=== PATIENT | female | born 1995 | race Caucasian/White ===

== ENCOUNTER 2025-04-04 06:27 | Inpatient (IN) ==
[2025-04-04 07:52] LABS: Hematocrit (blood only) 35.3 % (37.0-47.0); Hemoglobin 11.9 g/dl (12.0-16.0); Mean Corpuscular Hemoglobin 29.7 pg (25.0-34.0); Mean Corpuscular Hgb Conc 33.7 g/dL (32.0-36.0); Mean Platelet Volume 12.5 fL (9.4-12.4); Platelet Count 159 K/uL (130-400); RDW Coefficient of Variation 12.8 % (11.5-14.5); RDW Standard Deviation 40.9 fL (36.4-46.3); Red Blood Count 4.01 M/uL (4.20-5.40); White Blood Count 10.57 K/ul (4.8-10.8)
[2025-04-04 08:14] LABS: Albumin Level 2.9 gm/dl (3.4-5.0); BUN Creatinine Ratio 15.2 (10-20); Bilirubin Direct 0.1 mg/dl (0-0.2); Bilirubin,Total 0.5 mg/dl (0.2-1.0); Calcium 8.6 mg/dl (8.6-10.3); Creatinine Clr Calc Pharmacy 93.7 ml/min; Globulin 2.9 gm/dl (2.5-4.0); Potassium 4.2 mmol/L (3.5-5.1); Total Protein 5.8 gm/dl (6.0-8.3)
[2025-04-04 08:41] LABS: Creatinine Urine Random 134.8 mg/dl; Total Protein Urine Random > 1000.0 mg/dl (0-11.9)
--- NOTE | 2025-04-04 08:56 | History & Physical Report ---
Date of Service April 04, 2025 Assessment & Plan (1) Encounter for supervision of normal in multigravida: (2) History of pre-eclampsia: (3) Placental abnormality: Plan is a 29 y/o female currently at 39 1/7 WGA with an ERNESTINE 04/10/25 as determined by LMP who is here for secondary to contractions and home and possible ROM on her way to the hospital. Her was complicated by hx of pre-eclampsia in prior and placental capps in current . Pt is taking 81 mg aspirin daily. Pt presented with elevated BP's and 4+ protein in her urine. Noted possible meconium on exam glove following cervical check. Currently pt is denying pre-eclamptic symptoms. - Start IV mag sulfate 4mg, then 40mg IV at 50mls/hr - neuro checks q15m during mag loading dose, then q30m while on maintenance - Place ahumada catheter - Seizure precautions - Start Pitocin, start at 2 and increase by 2 - Consult anesthesia for epidural per pt request - Consider amniotomy if needed to augment and progress labor Admission and Anticipated Discharge Date Admission Date: April 04, 2025 History of Present Illness Chief Complaint: Contractions/PROM? Primary Care Provider: NO PCP is a 29 y/o female currently at 39 1/7 WGA with an ERNESTINE 04/10/25 as determined by LMP who is here for secondary to contractions and home and possible ROM on her way to the hospital. Her was complicated by hx of pre-eclampsia in prior and placental capps in current . Pt is taking 81 mg aspirin daily. regular contractions; regular movement; straw colored fluid loss this morning; no bloody show Had regular appointments with OB. Labs: Blood Type O Positive 09/23/24 Antibody Screen NEGATIVE 09/23/24 Hgb 12.3 g/dl (12.0-16.0) 01/16/25 Hct 36.4 % (37.0-47.0) L 01/16/25 MCV 86.7 fL (80.0-100.0) 09/23/24 Plt Count 253 K/uL (130-400) 09/23/24 Rubella IgG Antibody Immune (Immune) 09/23/24 Treponema pallidum Ab Negative (Negative) 01/16/25 Hep Bs Antigen Negative (Negative) 09/23/24 Hepatitis C Antibody Negative (Negative) 09/23/24 HIV 1&2 Ab/P24 Ag 4thGn Negative (Negative) 09/23/24 Glucose 1 Hr 50 gm 132 mg/dl (70-130) H 01/16/25 Maternal Serum AFP 53.5 ng/mL 10/24/24 OB Optional Labs: Chlamydia trachomatis RNA Not Detected (NotDetected) 09/23/24 Neisseria gonorrhoeae RNA Not Detected (NotDetected) 09/23/24 Alpha Fetoprotein Triple Screen SEE NOTE 10/24/24 Labs Reviewed: neg afp - sln low risk cfdna - sln H.9 (today) Hct: 35.3 (today) WBC: 10.57 (today) Plt: 159 (today) GBS: Neg Allergies Allergy/AdvReac Type Severity Reaction Status Date / Time No Known Allergies Allergy Verified 03/27/25 15:35 Home Medications Medication Instructions Recorded Confirmed Type PNV no.[id number]-fja-waze 1 mg PO DAILY 09/16/24 04/04/25 History [ Gummies] metoclopramide HCl 10 mg 10 mg PO Q6H #20 tabs 09/23/24 04/04/25 Rx disintegrating tablet aspirin [Baby Aspirin] 81 mg PO DAILY 10/24/24 04/04/25 History Patient History Medical History Varicella vaccination Preeclampsia Surgical History No history of previous surgery Family History Aunt Hypertension Denies family history of Ovarian cancer Breast cancer Colorectal cancer Social History (Updated 09/16/24 @ 14:12 by Charmaine Ellsworth) Smoking Status: Never smoker Do You Dip or Chew Tobacco: No; Hx Alcohol Use: No Hx Substance Use: No Preferred Language: [place] Communication Ability: Effective Aging Box Hand Required: No Beliefs That Will Affect Care: None marital status: Legally marital status details: antonieta Odell "Trenton" Charlee (31) [phone] Current Living Situation: Significant Other Current Living Situation Comment: lives with fob, 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 Denies breast pain. Denies dysuria. Denies headache or changes in vision. Physical Exam Physical Exam: General: Alert, oriented. No acute distress. Cardiac: Regular rate and rhythm, no murmurs/rubs/gallops. Respiratory: Clear to auscultation bilaterally a/p, no wheezes/rales/rhonchi. No increased work of breathing. Symmetrical chest rise. No respiratory distress. Abdomen: Gravid Pelvic: Dilation 5 cm; Effacement 90% ; Station -[address] Rivero Lower Extremities: No lower extremity edema or swelling. No deep calf pain. Santy's negative bilaterally Results & Data Vital Signs (Past 12 Hours) Vital Signs Temp Pulse Resp BP 04/04/25 07:13 106 H 04/04/25 07:13 159/108 H 04/04/25 06:57 37.3 C 20 04/04/25 06:56 89 04/04/25 06:56 171/107 H 04/04/25 06:46 88 186/103 H 04/04/25 06:43 37.4 C 96 H 18 168/100 H Code Status & VTE Plan VTE Prophylaxis Plan VTE Prophylaxis will be ordered: No Monitoring External Monitor External FHT and external uterine monitors used; Category 1 tracing; moderate FHT variability. Supervising Physician Co-Signing Physician Notes Resident Physician Supervision Note: I interviewed and examined the patient. Discussed with [Name of resident] and agree with findings and plan as documented in the note. Any exceptions or clarifications are listed here: Will AROM first to augment labor and pitocin augmentation is necessary. Initial PIH labs are normal. Documented By: Tiana Mckeon MD, FACOG Resident Activity Tracking Resident Involvement: Resident Care Provided Care Provided: Adult Hospital Medicine
[2025-04-04 09:32] LABS: Creatinine Urine Random 103.9 mg/dl; Protein Creatinine Ratio Urine 9.2 (0-0.2); Total Protein Urine Random 954.4 mg/dl (0-11.9)
--- NOTE | 2025-04-04 11:03 | Labor Progress Brief Note ---
Date of Service April 04, 2025 Subjective noting contractions, tolerating. Assessment & Plan (1) Preeclampsia: Plan Pressures have recently become elevated and have treated with IV labatelol. Symptoms have not worsened. prt/emergency doctor 9.2. Severe disease. arom for augmentation for mec. Peds aware of the situation. Will continue to monitor closely. Admission and Anticipated Discharge Date Admission Date: April 04, 2025 Physical Exam Physical Exam: cx-- arom--thick, particulate mec toco--q2-4 efm--130s with mod to min variability, small accels, scalp stim noted, mag effect Results & Data Vital Signs (Past 12 Hours) Vital Signs Temp Pulse Resp BP Pulse Ox 04/04/25 10:54 97 04/04/25 10:54 86 04/04/25 10:50 89 04/04/25 10:50 153/99 H 04/04/25 10:49 98 04/04/25 10:49 90 04/04/25 10:44 98 04/04/25 10:44 87 04/04/25 10:39 98 04/04/25 10:39 88 04/04/25 10:36 102 H 04/04/25 10:36 164/101 H 04/04/25 10:35 102 H 162/103 H 04/04/25 10:34 98 04/04/25 10:34 92 H 04/04/25 10:31 162/103 H 04/04/25 10:31 98 H 04/04/25 10:31 162/103 H 04/04/25 10:30 20 04/04/25 10:30 18 04/04/25 10:29 98 04/04/25 10:29 90 04/04/25 10:25 93 H 04/04/25 10:25 162/103 H 04/04/25 10:24 98 04/04/25 10:24 91 H 04/04/25 10:19 98 04/04/25 10:19 96 H 04/04/25 10:14 97 04/04/25 10:14 92 H 04/04/25 10:13 89 04/04/25 10:13 164/103 H 04/04/25 10:11 91 H 184/109 H 04/04/25 10:09 97 04/04/25 10:09 91 H 04/04/25 10:04 98 04/04/25 10:04 100 H 04/04/25 09:59 98 04/04/25 09:59 92 H 04/04/25 09:59 184/109 H 04/04/25 09:54 98 04/04/25 09:54 98 H 04/04/25 09:49 98 04/04/25 09:49 98 H 04/04/25 09:44 98 04/04/25 09:44 98 H 04/04/25 09:43 102 H 04/04/25 09:43 158/103 H 04/04/25 09:39 98 04/04/25 09:39 86 04/04/25 09:34 96 04/04/25 09:34 90 04/04/25 09:29 98 04/04/25 09:29 90 04/04/25 09:28 105 H 04/04/25 09:28 147/97 H 04/04/25 09:24 97 04/04/25 09:24 92 H 04/04/25 09:19 98 04/04/25 09:19 93 H 04/04/25 09:15 16 04/04/25 09:15 16 04/04/25 09:14 98 04/04/25 09:14 101 H 04/04/25 09:13 100 H 04/04/25 09:13 152/101 H 04/04/25 09:09 98 04/04/25 09:09 106 H 04/04/25 09:04 98 04/04/25 09:04 96 H 04/04/25 09:00 16 04/04/25 09:00 18 04/04/25 09:00 18 04/04/25 08:59 98 04/04/25 08:59 95 H 04/04/25 08:58 93 H 04/04/25 08:58 143/101 H 04/04/25 08:54 98 04/04/25 08:54 84 04/04/25 07:13 106 H 04/04/25 07:13 159/108 H 04/04/25 06:57 37.3 C 20 04/04/25 06:56 89 04/04/25 06:56 171/107 H 04/04/25 06:46 88 186/103 H 04/04/25 06:43 37.4 C 96 H 18 168/100 H Coding Level of Care Code None Diagnoses Preeclampsia O14.90
--- NOTE | 2025-04-04 14:21 | Labor Progress Brief Note ---
Date of Service April 04, 2025 Subjective Patient now with epidural. Blood pressure dropped with epidural requiring ephedrine. fetus tolerated but mom was symptomatic Assessment & Plan (1) Preeclampsia: Plan Continue mag. Offered pitocin as we seem to be stalled here. She agrees. Fetus overall category one, category 2 wiht min variability secondary to mag effect. Start pit. Patient tolerating lower blood pressures as is fetus. Admission and Anticipated Discharge Date Admission Date: April 04, 2025 Physical Exam Physical Exam: cx--6 per nursing, unchanged toco--q2-4min efm--130s with min to mod variability, mag effect, small accels Results & Data Vital Signs (Past 12 Hours) Vital Signs Temp Pulse Resp BP Pulse Ox 04/04/25 14:17 74 04/04/25 14:17 105/60 04/04/25 14:14 98 04/04/25 14:14 70 04/04/25 14:09 98 04/04/25 14:09 71 04/04/25 14:06 74 04/04/25 14:06 104/59 L 04/04/25 14:04 98 04/04/25 14:04 77 04/04/25 14:00 18 04/04/25 14:00 18 04/04/25 14:00 70 04/04/25 14:00 98/55 L 04/04/25 13:59 98 04/04/25 13:59 73 04/04/25 13:54 97 04/04/25 13:54 78 04/04/25 13:54 80 04/04/25 13:54 106/55 L 04/04/25 13:51 94 04/04/25 13:51 83 04/04/25 13:49 98 04/04/25 13:49 87 04/04/25 13:49 127/65 04/04/25 13:47 83 04/04/25 13:47 112/62 04/04/25 13:45 80 04/04/25 13:45 105/54 L 04/04/25 13:44 97 04/04/25 13:44 89 04/04/25 13:44 76 04/04/25 13:44 95/50 L 04/04/25 13:42 83 04/04/25 13:42 102/59 L 04/04/25 13:39 97 04/04/25 13:39 79 04/04/25 13:39 105/59 L 04/04/25 13:37 79 04/04/25 13:37 103/57 L 04/04/25 13:36 81 04/04/25 13:36 102/56 L 04/04/25 13:34 97 04/04/25 13:34 80 04/04/25 13:34 78 04/04/25 13:34 114/60 04/04/25 13:31 81 04/04/25 13:31 118/64 04/04/25 13:30 18 04/04/25 13:30 18 04/04/25 13:29 97 04/04/25 13:29 83 04/04/25 13:29 83 04/04/25 13:29 114/62 04/04/25 13:28 18 04/04/25 13:28 18 04/04/25 13:27 83 04/04/25 13:27 122/67 04/04/25 13:25 83 04/04/25 13:25 135/73 04/04/25 13:24 98 04/04/25 13:24 84 04/04/25 13:23 18 04/04/25 13:23 18 04/04/25 13:23 81 04/04/25 13:23 128/76 04/04/25 13:21 75 04/04/25 13:21 121/74 04/04/25 13:19 98 04/04/25 13:19 79 04/04/25 13:19 87 04/04/25 13:19 139/83 04/04/25 13:18 18 04/04/25 13:18 18 04/04/25 13:17 37.0 C 04/04/25 13:16 72 04/04/25 13:16 137/81 04/04/25 13:15 93 04/04/25 13:15 76 04/04/25 13:15 72 04/04/25 13:15 117/68 04/04/25 13:14 97 04/04/25 13:14 80 04/04/25 13:13 80 04/04/25 13:13 108/68 04/04/25 13:12 90 04/04/25 13:12 118/83 04/04/25 13:09 97 0620/25 13:09 84 04/04/25 13:04 97 04/04/25 13:04 84 04/04/25 13:00 20 04/04/25 13:00 20 04/04/25 12:59 97 04/04/25 12:59 89 04/04/25 12:59 87 04/04/25 12:59 163/99 H 04/04/25 12:54 97 04/04/25 12:54 85 04/04/25 12:49 99 04/04/25 12:49 90 04/04/25 12:49 85 04/04/25 12:49 161/99 H 04/04/25 12:45 142/86 H 04/04/25 12:44 99 04/04/25 12:44 84 04/04/25 12:39 97 04/04/25 12:39 88 04/04/25 12:39 166/97 H 04/04/25 12:34 98 04/04/25 12:34 88 04/04/25 12:30 18 04/04/25 12:30 20 04/04/25 12:30 20 04/04/25 12:29 98 04/04/25 12:29 87 04/04/25 12:29 83 04/04/25 12:29 142/86 H 04/04/25 12:28 157/101 H 04/04/25 12:24 97 04/04/25 12:24 90 04/04/25 12:22 83 179/102 H 04/04/25 12:20 83 04/04/25 12:20 179/102 H 04/04/25 12:19 98 04/04/25 12:19 84 04/04/25 12:14 98 04/04/25 12:14 89 04/04/25 12:09 97 04/04/25 12:09 88 04/04/25 12:09 89 04/04/25 12:09 156/99 H 04/04/25 12:04 97 04/04/25 12:04 86 04/04/25 12:03 85 04/04/25 12:03 154/97 H 04/04/25 12:00 18 04/04/25 12:00 18 04/04/25 11:59 98 04/04/25 11:59 86 04/04/25 11:59 167/102 H 04/04/25 11:54 97 04/04/25 11:54 86 04/04/25 11:49 98 04/04/25 11:49 89 04/04/25 11:49 86 04/04/25 11:49 150/98 H 04/04/25 11:44 97 04/04/25 11:44 86 04/04/25 11:39 98 04/04/25 11:39 89 04/04/25 11:39 86 04/04/25 11:39 157/101 H 04/04/25 11:34 98 04/04/25 11:34 87 04/04/25 11:30 20 04/04/25 11:30 20 04/04/25 11:29 97 04/04/25 11:29 87 04/04/25 11:29 158/104 H 04/04/25 11:24 97 04/04/25 11:24 97 H 04/04/25 11:22 91 H 161/107 H 04/04/25 11:19 99 04/04/25 11:19 95 H 04/04/25 11:19 95 H 04/04/25 11:19 161/107 H 04/04/25 11:14 98 04/04/25 11:14 100 H 04/04/25 11:09 98 04/04/25 11:09 95 H 04/04/25 11:09 95 H 04/04/25 11:09 158/100 H 04/04/25 11:04 97 04/04/25 11:04 99 H 04/04/25 11:00 89 153/99 H 04/04/25 11:00 20 04/04/25 11:00 20 04/04/25 10:59 97 04/04/25 10:59 100 H 04/04/25 10:59 169/106 H 04/04/25 10:58 36.9 C 04/04/25 10:54 97 04/04/25 10:54 86 04/04/25 10:50 89 04/04/25 10:50 153/99 H 04/04/25 10:49 98 04/04/25 10:49 90 04/04/25 10:44 98 04/04/25 10:44 87 04/04/25 10:39 98 06 10:39 88 06 10:36 102 H 04/04/25 10:36 164/101 H 04/04/25 10:35 102 H 162/103 H 04/04/25 10:34 98 04/04/25 10:34 92 H 04/04/25 10:31 162/103 H 04/04/25 10:31 98 H 04/04/25 10:31 162/103 H 04/04/25 10:30 20 04/04/25 10:30 18 04/04/25 10:29 98 06 10:29 90 04/04/25 10:25 93 H 04/04/25 10:25 162/103 H 04/04/25 10:24 98 04/04/25 10:24 91 H 04/04/25 10:19 98 04/04/25 10:19 96 H 04/04/25 10:14 97 04/04/25 10:14 92 H 04/04/25 10:13 89 04/04/25 10:13 164/103 H 04/04/25 10:11 91 H 184/109 H 04/04/25 10:09 97 04/04/25 10:09 91 H 04/04/25 10:04 98 04/04/25 10:04 100 H 04/04/25 09:59 98 04/04/25 09:59 92 H 04/04/25 09:59 184/109 H 04/04/25 09:54 98 04/04/25 09:54 98 H 04/04/25 09:49 98 04/04/25 09:49 98 H 04/04/25 09:44 98 04/04/25 09:44 98 H 04/04/25 09:43 102 H 04/04/25 09:43 158/103 H 04/04/25 09:39 98 04/04/25 09:39 86 04/04/25 09:34 96 04/04/25 09:34 90 04/04/25 09:29 98 04/04/25 09:29 90 04/04/25 09:28 105 H 04/04/25 09:28 147/97 H 04/04/25 09:24 97 04/04/25 09:24 92 H 04/04/25 09:19 98 04/04/25 09:19 93 H 04/04/25 09:15 16 04/04/25 09:15 16 04/04/25 09:14 98 04/04/25 09:14 101 H 04/04/25 09:13 100 H 04/04/25 09:13 152/101 H 04/04/25 09:09 98 04/04/25 09:09 106 H 04/04/25 09:04 98 04/04/25 09:04 96 H 04/04/25 09:00 16 04/04/25 09:00 18 04/04/25 09:00 18 04/04/25 08:59 98 04/04/25 08:59 95 H 04/04/25 08:58 93 H 04/04/25 08:58 143/101 H 04/04/25 08:54 98 04/04/25 08:54 84 04/04/25 07:13 106 H 04/04/25 07:13 159/108 H 04/04/25 06:57 37.3 C 20 04/04/25 06:56 89 04/04/25 06:56 171/107 H 04/04/25 06:46 88 186/103 H 04/04/25 06:43 37.4 C 96 H 18 168/100 H Coding Level of Care Code None Diagnoses Preeclampsia O14.90
--- NOTE | 2025-04-04 17:06 | Labor Progress Brief Note ---
Date of Service April 04, 2025 Subjective patient comfortable. notes shivering Assessment & Plan (1) Preeclampsia: Plan continue current management. fetus category two from mag effect but with reassuring scalp stim and occasional small variable. Admission and Anticipated Discharge Date Admission Date: April 04, 2025 Physical Exam Physical Exam: cx--/-2 toco--q2-4, pit at 4 efm--120 with min variability, mag effect, rare small variable, +scalp stim, no decels Results & Data Vital Signs (Past 12 Hours) Vital Signs Temp Pulse Resp BP Pulse Ox 04/04/25 16:59 99 04/04/25 16:59 75 04/04/25 16:56 80 04/04/25 16:56 112/59 L 04/04/25 16:54 99 04/04/25 16:54 89 04/04/25 16:49 100 04/04/25 16:49 102 H 04/04/25 16:44 98 04/04/25 16:44 82 04/04/25 16:39 98 04/04/25 16:39 81 04/04/25 16:36 78 04/04/25 16:36 120/66 04/04/25 16:35 92 H 04/04/25 16:35 116/60 04/04/25 16:34 99 04/04/25 16:34 79 04/04/25 16:30 20 04/04/25 16:30 20 04/04/25 16:29 98 04/04/25 16:29 83 04/04/25 16:24 99 04/04/25 16:24 79 04/04/25 16:19 99 04/04/25 16:19 84 04/04/25 16:17 81 04/04/25 16:17 114/56 L 04/04/25 16:14 98 04/04/25 16:14 74 04/04/25 16:09 100 04/04/25 16:09 84 04/04/25 16:09 76 04/04/25 16:09 104/64 04/04/25 16:04 99 04/04/25 16:04 76 04/04/25 16:00 18 04/04/25 16:00 18 04/04/25 15:59 99 04/04/25 15:59 80 04/04/25 15:57 72 06/20/25 15:57 108/55 L 04/04/25 15:54 99 04/04/25 15:54 74 04/04/25 15:49 99 04/04/25 15:49 77 04/04/25 15:47 70 04/04/25 15:47 99/52 L 04/04/25 15:44 98 04/04/25 15:44 78 04/04/25 15:39 98 04/04/25 15:39 77 04/04/25 15:37 79 04/04/25 15:37 110/57 L 04/04/25 15:34 100 04/04/25 15:34 77 04/04/25 15:30 18 04/04/25 15:30 18 04/04/25 15:30 18 04/04/25 15:29 100 04/04/25 15:29 82 04/04/25 15:27 76 04/04/25 15:27 112/61 04/04/25 15:24 99 04/04/25 15:24 74 04/04/25 15:19 99 04/04/25 15:19 78 04/04/25 15:17 81 04/04/25 15:17 112/62 04/04/25 15:14 98 04/04/25 15:14 82 04/04/25 15:09 99 04/04/25 15:09 70 04/04/25 15:06 78 04/04/25 15:06 108/56 L 04/04/25 15:04 99 04/04/25 15:04 78 04/04/25 15:00 18 04/04/25 15:00 36.6 C 18 04/04/25 14:59 99 04/04/25 14:59 75 04/04/25 14:56 71 04/04/25 14:56 107/59 L 04/04/25 14:54 99 04/04/25 14:54 79 04/04/25 14:49 98 04/04/25 14:49 77 04/04/25 14:46 75 04/04/25 14:46 95/53 L 04/04/25 14:44 98 04/04/25 14:44 72 04/04/25 14:42 75 04/04/25 14:42 106/56 L 04/04/25 14:39 99 04/04/25 14:39 74 04/04/25 14:36 80 04/04/25 14:36 108/54 L 04/04/25 14:34 97 04/04/25 14:34 86 04/04/25 14:31 94 04/04/25 14:31 82 04/04/25 14:30 18 04/04/25 14:30 18 04/04/25 14:30 18 04/04/25 14:29 97 04/04/25 14:29 71 04/04/25 14:28 73 04/04/25 14:28 90/52 L 04/04/25 14:24 98 04/04/25 14:24 81 04/04/25 14:19 98 04/04/25 14:19 74 04/04/25 14:17 74 04/04/25 14:17 105/60 04/04/25 14:14 98 04/04/25 14:14 70 04/04/25 14:09 98 04/04/25 14:09 71 04/04/25 14:06 74 04/04/25 14:06 104/59 L 04/04/25 14:04 98 04/04/25 14:04 77 04/04/25 14:00 18 04/04/25 14:00 18 04/04/25 14:00 70 04/04/25 14:00 98/55 L 04/04/25 13:59 98 04/04/25 13:59 73 04/04/25 13:54 97 04/04/25 13:54 78 04/04/25 13:54 80 04/04/25 13:54 106/55 L 04/04/25 13:51 94 04/04/25 13:51 83 04/04/25 13:49 98 04/04/25 13:49 87 04/04/25 13:49 127/65 04/04/25 13:47 83 04/04/25 13:47 112/62 04/04/25 13:45 80 04/04/25 13:45 105/54 L 04/04/25 13:44 97 04/04/25 13:44 89 04/04/25 13:44 76 04/04/25 13:44 95/50 L 04/04/25 13:42 83 04/04/25 13:42 102/59 L 04/04/25 13:39 97 04/04/25 13:39 79 04/04/25 13:39 105/59 L 04/04/25 13:37 79 04/04/25 13:37 103/57 L 04/04/25 13:36 81 04/04/25 13:36 102/56 L 04/04/25 13:34 97 04/04/25 13:34 80 04/04/25 13:34 78 04/04/25 13:34 114/60 04/04/25 13:31 81 04/04/25 13:31 118/64 04/04/25 13:30 18 04/04/25 13:30 18 04/04/25 13:30 18 04/04/25 13:29 97 04/04/25 13:29 83 04/04/25 13:29 83 04/04/25 13:29 114/62 04/04/25 13:28 18 04/04/25 13:28 18 04/04/25 13:27 83 04/04/25 13:27 122/67 04/04/25 13:25 83 04/04/25 13:25 135/73 04/04/25 13:24 98 04/04/25 13:24 84 04/04/25 13:23 18 04/04/25 13:23 18 04/04/25 13:23 81 04/04/25 13:23 128/76 04/04/25 13:21 75 04/04/25 13:21 121/74 04/04/25 13:19 98 04/04/25 13:19 79 04/04/25 13:19 87 04/04/25 13:19 139/83 04/04/25 13:18 18 04/04/25 13:18 18 04/04/25 13:17 37.0 C 04/04/25 13:16 72 04/04/25 13:16 137/81 04/04/25 13:15 93 04/04/25 13:15 76 04/04/25 13:15 72 04/04/25 13:15 117/68 04/04/25 13:14 97 04/04/25 13:14 80 04/04/25 13:13 80 04/04/25 13:13 108/68 04/04/25 13:12 90 04/04/25 13:12 118/83 04/04/25 13:09 97 04/04/25 13:09 84 04/04/25 13:04 97 04/04/25 13:04 84 04/04/25 13:00 20 04/04/25 13:00 20 04/04/25 12:59 97 04/04/25 12:59 89 04/04/25 12:59 87 04/04/25 12:59 163/99 H 04/04/25 12:54 97 04/04/25 12:54 85 04/04/25 12:49 99 04/04/25 12:49 90 04/04/25 12:49 85 04/04/25 12:49 161/99 H 04/04/25 12:45 142/86 H 04/04/25 12:44 99 04/04/25 12:44 84 04/04/25 12:39 97 04/04/25 12:39 88 04/04/25 12:39 166/97 H 04/04/25 12:34 98 04/04/25 12:34 88 04/04/25 12:30 18 04/04/25 12:30 20 04/04/25 12:30 20 04/04/25 12:29 98 04/04/25 12:29 87 04/04/25 12:29 83 04/04/25 12:29 142/86 H 04/04/25 12:28 157/101 H 04/04/25 12:24 97 04/04/25 12:24 90 04/04/25 12:22 83 179/102 H 04/04/25 12:20 83 04/04/25 12:20 179/102 H 04/04/25 12:19 98 04/04/25 12:19 84 04/04/25 12:14 98 04/04/25 12:14 89 04/04/25 12:09 97 04/04/25 12:09 88 04/04/25 12:09 89 04/04/25 12:09 156/99 H 04/04/25 12:04 97 04/04/25 12:04 86 04/04/25 12:03 85 04/04/25 12:03 154/97 H 04/04/25 12:00 18 04/04/25 12:00 18 04/04/25 11:59 98 04/04/25 11:59 86 04/04/25 11:59 167/102 H 04/04/25 11:54 97 04/04/25 11:54 86 04/04/25 11:49 98 04/04/25 11:49 89 04/04/25 11:49 86 04/04/25 11:49 150/98 H 04/04/25 11:44 97 04/04/25 11:44 86 04/04/25 11:39 98 04/04/25 11:39 89 04/04/25 11:39 86 04/04/25 11:39 157/101 H 04/04/25 11:34 98 04/04/25 11:34 87 04/04/25 11:30 18 04/04/25 11:30 20 04/04/25 11:30 20 04/04/25 11:29 97 04/04/25 11:29 87 04/04/25 11:29 158/104 H 04/04/25 11:24 97 04/04/25 11:24 97 H 04/04/25 11:22 91 H 161/107 H 04/04/25 11:19 99 04/04/25 11:19 95 H 04/04/25 11:19 95 H 04/04/25 11:19 161/107 H 04/04/25 11:14 98 04/04/25 11:14 100 H 04/04/25 11:09 98 04/04/25 11:09 95 H 04/04/25 11:09 95 H 04/04/25 11:09 158/100 H 04/04/25 11:04 97 04/04/25 11:04 99 H 04/04/25 11:00 89 153/99 H 04/04/25 11:00 20 04/04/25 11:00 20 04/04/25 10:59 97 04/04/25 10:59 100 H 04/04/25 10:59 169/106 H 04/04/25 10:58 36.9 C 04/04/25 10:54 97 04/04/25 10:54 86 04/04/25 10:50 89 04/04/25 10:50 153/99 H 20 10:49 98 062025 10:49 90 20 10:44 98 06 10:44 87 04/04/25 10:39 98 04/04/25 10:39 88 04/04/25 10:36 102 H 04/04/25 10:36 164/101 H 04/04/25 10:35 102 H 162/103 H 04/04/25 10:34 98 04/04/25 10:34 92 H 04/04/25 10:31 162/103 H 04/04/25 10:31 98 H 04/04/25 10:31 162/103 H 04/04/25 10:30 20 04/04/25 10:30 18 04/04/25 10:29 98 04/04/25 10:29 90 04/04/25 10:25 93 H 04/04/25 10:25 162/103 H 04/04/25 10:24 98 04/04/25 10:24 91 H 04/04/25 10:19 98 04/04/25 10:19 96 H 04/04/25 10:14 97 04/04/25 10:14 92 H 04/04/25 10:13 89 04/04/25 10:13 164/103 H 04/04/25 10:11 91 H 184/109 H 04/04/25 10:09 97 04/04/25 10:09 91 H 04/04/25 10:04 98 04/04/25 10:04 100 H 04/04/25 09:59 98 04/04/25 09:59 92 H 04/04/25 09:59 184/109 H 04/04/25 09:54 98 04/04/25 09:54 98 H 04/04/25 09:49 98 04/04/25 09:49 98 H 04/04/25 09:44 98 04/04/25 09:44 98 H 04/04/25 09:43 102 H 04/04/25 09:43 158/103 H 04/04/25 09:39 98 0620 09:39 86 04/04/25 09:34 96 04/04/25 09:34 90 04/04/25 09:29 98 04/04/25 09:29 90 04/04/25 09:28 105 H 04/04/25 09:28 147/97 H 04/04/25 09:24 97 04/04/25 09:24 92 H 04/04/25 09:19 98 04/04/25 09:19 93 H 04/04/25 09:15 16 04/04/25 09:15 16 04/04/25 09:14 98 04/04/25 09:14 101 H 04/04/25 09:13 100 H 04/04/25 09:13 152/101 H 04/04/25 09:09 98 04/04/25 09:09 106 H 04/04/25 09:04 98 04/04/25 09:04 96 H 04/04/25 09:00 16 04/04/25 09:00 18 04/04/25 09:00 18 04/04/25 08:59 98 04/04/25 08:59 95 H 04/04/25 08:58 93 H 04/04/25 08:58 143/101 H 04/04/25 08:54 98 04/04/25 08:54 84 04/04/25 07:13 106 H 04/04/25 07:13 159/108 H 04/04/25 06:57 37.3 C 20 04/04/25 06:56 89 04/04/25 06:56 171/107 H 04/04/25 06:46 88 186/103 H 04/04/25 06:43 37.4 C 96 H 18 168/100 H Coding Level of Care Code None Diagnoses Preeclampsia O14.90
--- NOTE | 2025-04-04 20:52 | Labor Progress Brief Note ---
Date of Service April 04, 2025 Subjective comfortable Assessment & Plan (1) Preeclampsia: Plan continue current management. increase pitocin. positioning changes. Starting to get a little worried about the slow progress and the edematous cervix. Admission and Anticipated Discharge Date Admission Date: April 04, 2025 Physical Exam Physical Exam: cx--8-9/90/0, edematous anterior lip toco--q2-4, pit at 8 efm--130s wtih min to mod varaiblity, small accels, +scalp stim, mag effect Results & Data Vital Signs (Past 12 Hours) Vital Signs Temp Pulse Resp BP Pulse Ox O2 Del Method 04/04/25 20:47 93 H 04/04/25 20:47 144/85 H 04/04/25 20:44 97 04/04/25 20:44 103 H 04/04/25 20:39 98 04/04/25 20:39 92 H 04/04/25 20:37 87 04/04/25 20:37 129/80 04/04/25 20:35 96 H 04/04/25 20:35 140/76 04/04/25 20:34 98 04/04/25 20:34 100 H 04/04/25 20:29 99 04/04/25 20:29 99 H 04/04/25 20:24 98 04/04/25 20:24 104 H 04/04/25 20:19 99 04/04/25 20:19 86 04/04/25 20:17 96 H 04/04/25 20:17 129/81 04/04/25 20:14 99 04/04/25 20:14 93 H 04/04/25 20:09 100 04/04/25 20:09 88 04/04/25 20:06 87 04/04/25 20:06 125/74 04/04/25 20:04 99 04/04/25 20:04 91 H 04/04/25 20:00 16 04/04/25 19:59 100 04/04/25 19:59 88 04/04/25 19:56 97 H 04/04/25 19:56 118/73 04/04/25 19:54 100 04/04/25 19:54 89 04/04/25 19:49 100 04/04/25 19:49 91 H 04/04/25 19:47 90 04/04/25 19:47 117/69 04/04/25 19:44 100 04/04/25 19:44 100 H 04/04/25 19:39 99 04/04/25 19:39 103 H 04/04/25 19:38 100 H 04/04/25 19:38 140/85 04/04/25 19:34 99 04/04/25 19:34 106 H 04/04/25 19:29 99 04/04/25 19:29 96 H 04/04/25 19:27 100 H 04/04/25 19:27 134/72 04/04/25 19:24 99 04/04/25 19:24 104 H 04/04/25 19:19 98 04/04/25 19:19 86 04/04/25 19:17 87 04/04/25 19:17 115/71 04/04/25 19:14 99 04/04/25 19:14 86 04/04/25 19:09 99 04/04/25 19:09 88 04/04/25 19:08 100 H 04/04/25 19:08 119/75 04/04/25 19:04 97 04/04/25 19:04 97 H 04/04/25 19:03 16 04/04/25 19:03 37.1 C 16 04/04/25 19:00 Room Air 04/04/25 19:00 16 04/04/25 19:00 18 04/04/25 19:00 18 04/04/25 18:59 98 04/04/25 18:59 90 04/04/25 18:57 93 H 04/04/25 18:57 132/79 04/04/25 18:54 98 04/04/25 18:54 102 H 04/04/25 18:49 98 04/04/25 18:49 97 H 04/04/25 18:46 97 H 04/04/25 18:46 125/79 04/04/25 18:44 98 04/04/25 18:44 107 H 04/04/25 18:39 98 04/04/25 18:39 89 04/04/25 18:37 91 H 04/04/25 18:37 134/77 04/04/25 18:34 98 04/04/25 18:34 94 H 04/04/25 18:30 18 04/04/25 18:30 18 04/04/25 18:30 18 04/04/25 18:29 98 04/04/25 18:29 89 04/04/25 18:26 93 H 04/04/25 18:26 120/80 04/04/25 18:24 98 04/04/25 18:24 88 04/04/25 18:19 98 04/04/25 18:19 103 H 04/04/25 18:17 104 H 04/04/25 18:17 136/93 04/04/25 18:14 98 04/04/25 18:14 91 H 04/04/25 18:09 99 04/04/25 18:09 105 H 04/04/25 18:06 90 04/04/25 18:06 135/76 04/04/25 18:04 98 04/04/25 18:04 89 04/04/25 18:00 18 04/04/25 18:00 18 04/04/25 17:59 98 04/04/25 17:59 95 H 04/04/25 17:56 101 H 04/04/25 17:56 131/74 04/04/25 17:54 99 04/04/25 17:54 92 H 04/04/25 17:49 99 04/04/25 17:49 91 H 04/04/25 17:47 81 04/04/25 17:47 136/71 04/04/25 17:44 98 04/04/25 17:44 81 04/04/25 17:39 100 04/04/25 17:39 97 H 04/04/25 17:36 95 H 04/04/25 17:36 140/65 04/04/25 17:34 99 04/04/25 17:34 84 04/04/25 17:30 16 04/04/25 17:30 18 04/04/25 17:30 18 04/04/25 17:29 99 04/04/25 17:29 90 04/04/25 17:26 86 04/04/25 17:26 122/68 04/04/25 17:24 98 04/04/25 17:24 78 04/04/25 17:19 100 04/04/25 17:19 93 H 04/04/25 17:16 78 04/04/25 17:16 125/71 04/04/25 17:14 98 04/04/25 17:14 76 04/04/25 17:09 98 04/04/25 17:09 83 04/04/25 17:08 78 04/04/25 17:08 119/64 04/04/25 17:04 99 04/04/25 17:04 80 04/04/25 17:00 18 04/04/25 17:00 18 04/04/25 16:59 99 04/04/25 16:59 75 04/04/25 16:56 80 04/04/25 16:56 112/59 L 04/04/25 16:54 99 04/04/25 16:54 89 04/04/25 16:49 100 04/04/25 16:49 102 H 04/04/25 16:44 98 04/04/25 16:44 82 04/04/25 16:39 98 04/04/25 16:39 81 04/04/25 16:36 78 04/04/25 16:36 120/66 04/04/25 16:35 92 H 04/04/25 16:35 116/60 04/04/25 16:34 99 04/04/25 16:34 79 04/04/25 16:30 18 04/04/25 16:30 20 04/04/25 16:30 20 04/04/25 16:29 98 04/04/25 16:29 83 04/04/25 16:24 99 04/04/25 16:24 79 04/04/25 16:19 99 04/04/25 16:19 84 04/04/25 16:17 81 04/04/25 16:17 114/56 L 04/04/25 16:14 98 04/04/25 16:14 74 04/04/25 16:09 100 04/04/25 16:09 84 04/04/25 16:09 76 04/04/25 16:09 104/64 04/04/25 16:04 99 04/04/25 16:04 76 04/04/25 16:00 18 04/04/25 16:00 18 04/04/25 15:59 99 04/04/25 15:59 80 04/04/25 15:57 72 04/04/25 15:57 108/55 L 04/04/25 15:54 99 04/04/25 15:54 74 04/04/25 15:49 99 04/04/25 15:49 77 04/04/25 15:47 70 04/04/25 15:47 99/52 L 04/04/25 15:44 98 04/04/25 15:44 78 04/04/25 15:39 98 04/04/25 15:39 77 04/04/25 15:37 79 04/04/25 15:37 110/57 L 04/04/25 15:34 100 04/04/25 15:34 77 04/04/25 15:30 18 04/04/25 15:30 18 04/04/25 15:30 18 04/04/25 15:29 100 04/04/25 15:29 82 04/04/25 15:27 76 04/04/25 15:27 112/61 04/04/25 15:24 99 04/04/25 15:24 74 04/04/25 15:19 99 04/04/25 15:19 78 04/04/25 15:17 81 04/04/25 15:17 112/62 04/04/25 15:14 98 04/04/25 15:14 82 04/04/25 15:09 99 04/04/25 15:09 70 04/04/25 15:06 78 04/04/25 15:06 108/56 L 04/04/25 15:04 99 04/04/25 15:04 78 04/04/25 15:00 18 04/04/25 15:00 36.6 C 18 04/04/25 14:59 99 04/04/25 14:59 75 04/04/25 14:56 71 04/04/25 14:56 107/59 L 04/04/25 14:54 99 04/04/25 14:54 79 04/04/25 14:49 98 04/04/25 14:49 77 04/04/25 14:46 75 04/04/25 14:46 95/53 L 04/04/25 14:44 98 04/04/25 14:44 72 04/04/25 14:42 75 04/04/25 14:42 106/56 L 04/04/25 14:39 99 06/20/25 14:39 74 04/04/25 14:36 80 04/04/25 14:36 108/54 L 04/04/25 14:34 97 04/04/25 14:34 86 04/04/25 14:31 94 04/04/25 14:31 82 04/04/25 14:30 18 04/04/25 14:30 18 04/04/25 14:30 18 04/04/25 14:29 97 04/04/25 14:29 71 04/04/25 14:28 73 04/04/25 14:28 90/52 L 04/04/25 14:24 98 04/04/25 14:24 81 04/04/25 14:19 98 04/04/25 14:19 74 04/04/25 14:17 74 04/04/25 14:17 105/60 04/04/25 14:14 98 04/04/25 14:14 70 04/04/25 14:09 98 04/04/25 14:09 71 04/04/25 14:06 74 04/04/25 14:06 104/59 L 04/04/25 14:04 98 04/04/25 14:04 77 04/04/25 14:00 18 04/04/25 14:00 18 04/04/25 14:00 70 04/04/25 14:00 98/55 L 04/04/25 13:59 98 04/04/25 13:59 73 04/04/25 13:54 97 04/04/25 13:54 78 04/04/25 13:54 80 04/04/25 13:54 106/55 L 04/04/25 13:51 94 04/04/25 13:51 83 04/04/25 13:49 98 04/04/25 13:49 87 04/04/25 13:49 127/65 04/04/25 13:47 83 04/04/25 13:47 112/62 04/04/25 13:45 80 04/04/25 13:45 105/54 L 04/04/25 13:44 97 04/04/25 13:44 89 04/04/25 13:44 76 04/04/25 13:44 95/50 L 04/04/25 13:42 83 04/04/25 13:42 102/59 L 04/04/25 13:39 97 04/04/25 13:39 79 04/04/25 13:39 105/59 L 04/04/25 13:37 79 04/04/25 13:37 103/57 L 04/04/25 13:36 81 04/04/25 13:36 102/56 L 04/04/25 13:34 97 04/04/25 13:34 80 04/04/25 13:34 78 04/04/25 13:34 114/60 04/04/25 13:31 81 04/04/25 13:31 118/64 04/04/25 13:30 18 04/04/25 13:30 18 04/04/25 13:30 18 04/04/25 13:29 97 04/04/25 13:29 83 04/04/25 13:29 83 04/04/25 13:29 114/62 04/04/25 13:28 18 04/04/25 13:28 18 04/04/25 13:27 83 04/04/25 13:27 122/67 04/04/25 13:25 83 04/04/25 13:25 135/73 04/04/25 13:24 98 04/04/25 13:24 84 04/04/25 13:23 18 04/04/25 13:23 18 04/04/25 13:23 81 04/04/25 13:23 128/76 04/04/25 13:21 75 04/04/25 13:21 121/74 04/04/25 13:19 98 04/04/25 13:19 79 04/04/25 13:19 87 04/04/25 13:19 139/83 04/04/25 13:18 18 04/04/25 13:18 18 04/04/25 13:17 37.0 C 04/04/25 13:16 72 04/04/25 13:16 137/81 04/04/25 13:15 93 04/04/25 13:15 76 04/04/25 13:15 72 04/04/25 13:15 117/68 04/04/25 13:14 97 04/04/25 13:14 80 04/04/25 13:13 80 04/04/25 13:13 108/68 0620/25 13:12 90 04/04/25 13:12 118/83 04/04/25 13:09 97 04/04/25 13:09 84 04/04/25 13:04 97 04/04/25 13:04 84 04/04/25 13:00 20 04/04/25 13:00 20 04/04/25 12:59 97 04/04/25 12:59 89 04/04/25 12:59 87 04/04/25 12:59 163/99 H 04/04/25 12:54 97 04/04/25 12:54 85 04/04/25 12:49 99 04/04/25 12:49 90 04/04/25 12:49 85 04/04/25 12:49 161/99 H 04/04/25 12:45 142/86 H 04/04/25 12:44 99 04/04/25 12:44 84 04/04/25 12:39 97 04/04/25 12:39 88 04/04/25 12:39 166/97 H 04/04/25 12:34 98 04/04/25 12:34 88 04/04/25 12:30 18 04/04/25 12:30 20 04/04/25 12:30 20 04/04/25 12:29 98 04/04/25 12:29 87 04/04/25 12:29 83 04/04/25 12:29 142/86 H 04/04/25 12:28 157/101 H 04/04/25 12:24 97 04/04/25 12:24 90 04/04/25 12:22 83 179/102 H 04/04/25 12:20 83 04/04/25 12:20 179/102 H 04/04/25 12:19 98 04/04/25 12:19 84 04/04/25 12:14 98 04/04/25 12:14 89 04/04/25 12:09 97 04/04/25 12:09 88 04/04/25 12:09 89 04/04/25 12:09 156/99 H 04/04/25 12:04 97 04/04/25 12:04 86 04/04/25 12:03 85 04/04/25 12:03 154/97 H 04/04/25 12:00 18 06/20/25 12:00 18 04/04/25 11:59 98 04/04/25 11:59 86 04/04/25 11:59 167/102 H 04/04/25 11:54 97 04/04/25 11:54 86 04/04/25 11:49 98 04/04/25 11:49 89 04/04/25 11:49 86 04/04/25 11:49 150/98 H 04/04/25 11:44 97 04/04/25 11:44 86 04/04/25 11:39 98 04/04/25 11:39 89 04/04/25 11:39 86 04/04/25 11:39 157/101 H 04/04/25 11:34 98 04/04/25 11:34 87 04/04/25 11:30 18 04/04/25 11:30 20 04/04/25 11:30 20 04/04/25 11:29 97 04/04/25 11:29 87 04/04/25 11:29 158/104 H 04/04/25 11:24 97 04/04/25 11:24 97 H 04/04/25 11:22 91 H 161/107 H 04/04/25 11:19 99 04/04/25 11:19 95 H 04/04/25 11:19 95 H 04/04/25 11:19 161/107 H 04/04/25 11:14 98 04/04/25 11:14 100 H 04/04/25 11:09 98 04/04/25 11:09 95 H 04/04/25 11:09 95 H 04/04/25 11:09 158/100 H 04/04/25 11:04 97 04/04/25 11:04 99 H 04/04/25 11:00 89 153/99 H 04/04/25 11:00 20 04/04/25 11:00 20 04/04/25 10:59 97 04/04/25 10:59 100 H 04/04/25 10:59 169/106 H 04/04/25 10:58 36.9 C 04/04/25 10:54 97 04/04/25 10:54 86 04/04/25 10:50 89 04/04/25 10:50 153/99 H 06/20/25 10:49 98 06/2025 10:49 90 06/2025 10:44 98 0620 10:44 87 0620 10:39 98 0620 10:39 88 06 10:36 102 H 04/04/25 10:36 164/101 H 06 10:35 102 H 162/103 H 04/04/25 10:34 98 04/04/25 10:34 92 H 04/04/25 10:31 162/103 H 0620 10:31 98 H 04/04/25 10:31 162/103 H 04/04/25 10:30 20 04/04/25 10:30 18 04/04/25 10:29 98 04/04/25 10:29 90 04/04/25 10:25 93 H 04/04/25 10:25 162/103 H 04/04/25 10:24 98 04/04/25 10:24 91 H 04/04/25 10:19 98 04/04/25 10:19 96 H 04/04/25 10:14 97 04/04/25 10:14 92 H 04/04/25 10:13 89 04/04/25 10:13 164/103 H 04/04/25 10:11 91 H 184/109 H 04/04/25 10:09 97 04/04/25 10:09 91 H 04/04/25 10:04 98 04/04/25 10:04 100 H 04/04/25 09:59 98 20 09:59 92 H 04/04/25 09:59 184/109 H 20 09:54 98 0620 09:54 98 H 04/04/25 09:49 98 0620 09:49 98 H 04/04/25 09:44 98 20 09:44 98 H 04/04/25 09:43 102 H 04/04/25 09:43 158/103 H 20 09:39 98 20 09:39 86 0620 09:34 96 20 09:34 90 20 09:29 98 20 09:29 90 06 09:28 105 H 06/20/25 09:28 147/97 H 04/04/25 09:24 97 04/04/25 09:24 92 H 04/04/25 09:19 98 04/04/25 09:19 93 H 04/04/25 09:15 16 04/04/25 09:15 16 04/04/25 09:14 98 04/04/25 09:14 101 H 04/04/25 09:13 100 H 04/04/25 09:13 152/101 H 04/04/25 09:09 98 04/04/25 09:09 106 H 04/04/25 09:04 98 04/04/25 09:04 96 H 04/04/25 09:00 16 04/04/25 09:00 18 04/04/25 09:00 18 04/04/25 08:59 98 04/04/25 08:59 95 H 04/04/25 08:58 93 H 04/04/25 08:58 143/101 H 04/04/25 08:54 98 04/04/25 08:54 84 Coding Level of Care Code None Diagnoses Preeclampsia O14.90
--- NOTE | 2025-04-04 23:59 | Delivery Summary ---
Vaginal Delivery Summary Date of Service April 04, 2025 Vaginal Delivery Summary and 2nd Degree LAC Pre-operative Diagnosis: at 39 weeks preeclampsia with severe features Post-operative Diagnosis: same thick meconium Procedure: pitocin augmentation arom magnesium sulfate seizure prophylaxis second degree laceration repair QBL: 460cc Anesthesia: epidural Procedure: Patient presented in early labor. She had severely elevated blood pressures and proteinuria and diagnosed with preeclampsia with severe features. Mag was started. She required several doses of labetalol for control. She had arom for thick, green mec. She subsequently got an epidural which really lowered her pressures. She progressed slowly with pitocin to c/c/+1. The patient pushed for about 10 minutes to deliver a viable female in ximena position. The anterior shoulder was immediately delivered very slowly but did not encounter a shoulder dystocia. the rest of the was then delivered without difficulty. The nose and mouth were bulb suctioned and the infant was placed in the maternal abdomen for drying and attention. Cord was clamped and cut shortly after and the infant was taken to the warmer for attention by the chief environmental commitment officer. Cord blood obtained. Placenta delivered spontaneous, intact with a three vessel cord. Cervix/sulci/rectum were intact. A second degree perineal laceration was repaired in the normal standard fashion. Hemostasis obtained with dilute pitocin and fundal massage and pr cytotec. Apgars were 7/9. Mother and baby doing well at the end of the delivery. Mother will remain on magnesium for the next 24 hours. [facility] Vaginal Delivery Charge Delivery Type Details: and 2nd Degree LAC
--- NOTE | 2025-04-05 00:10 | Anesthesia Procedure Note ---
Date of Service April 05, 2025 Anesthesia Post Epidural Note Vital Signs Vital Signs: Temp Pulse Resp BP Pulse Ox O2 Del Method 38.0 C H 94 H 16 123/71 98 Room Air 04/04/25 23:10 04/05/25 00:06 04/04/25 23:10 04/04/25 23:56 04/05/25 00:06 04/04/25 19:00 Pain Intensity Lower Perineal: Pain Intensity: 3 Notes Mental Status: alert / awake / arousable Nausea / Vomiting: adequately controlled Pain: adequately controlled Airway Patency, RR, SpO2: stable & adequate BP & HR: stable & adequate Hydration State: stable & adequate Neuraxial Anesthesia: was administered and sensory block is resolving Anesthetic Complications: no major complications apparent and Pt Satisfied with anesthetic care Epidural: Removed without complications and With tip intact
[2025-04-05 07:16] LABS: Hematocrit (blood only) 32.3 % (37.0-47.0); Hemoglobin 10.9 g/dl (12.0-16.0); Mean Corpuscular Hemoglobin 29.8 pg (25.0-34.0); Mean Corpuscular Hgb Conc 33.7 g/dL (32.0-36.0); Mean Corpuscular Volume 88.3 fL (80.0-100.0); Mean Platelet Volume 12.3 fL (9.4-12.4); Platelet Count 152 K/uL (130-400); RDW Coefficient of Variation 12.9 % (11.5-14.5); RDW Standard Deviation 41.1 fL (36.4-46.3); Red Blood Count 3.66 M/uL (4.20-5.40); White Blood Count 19.65 K/ul (4.8-10.8)
--- NOTE | 2025-04-05 07:32 | Obstetrical Progress Note ---
Date of Service April 05, 2025 Assessment & Plan (1) Preeclampsia: (2) Encounter for assessment: Plan Overall doing well. Continue mag for 24 hours. no s/s of toxicity. cbc nl, cmp pending. Monitor pressures, borderline at present. Subjective Ambulation: limited ambulation Voiding: ahumada catheter in place (improved uop) Passing Gas:: No Diet Tolerance:: clear liquids Lochia:: Small Patient feeling overall ok. Double vision. Physical Exam Constitutional WD/WN, vitals as above Cardiovascular Extremities: + edema (+1); no calf tenderness Gastrointestinal (Abdomen) soft, nt, nd, ff/nt at u Neurologic +1/2 dtrs, no clonus Psychiatric A+Ox3, euthymic affect Results & Data Vital Signs (Past 12 Hours) Vital Signs Temp Pulse Resp BP Pulse Ox 04/05/25 07:26 101 H 99 04/05/25 07:21 92 H 99 04/05/25 07:16 93 H 100 04/05/25 07:15 37.5 C 16 04/05/25 07:15 16 04/05/25 07:11 96 H 100 04/05/25 07:06 96 H 100 04/05/25 07:02 99 H 141/86 H 04/05/25 07:01 96 H 100 04/05/25 06:56 92 H 99 04/05/25 06:51 92 H 99 04/05/25 06:46 91 H 100 04/05/25 06:41 93 H 100 04/05/25 06:36 94 H 100 04/05/25 06:31 103 H 100 04/05/25 06:29 16 04/05/25 06:26 99 H 100 04/05/25 06:21 103 H 98 04/05/25 06:16 102 H 99 04/05/25 06:11 105 H 98 04/05/25 06:06 107 H 98 04/05/25 06:01 97 H 97 04/05/25 05:57 111 H 121/70 04/05/25 05:56 96 H 97 04/05/25 05:51 97 H 97 04/05/25 05:46 96 H 97 04/05/25 05:41 96 H 97 04/05/25 05:36 96 H 97 04/05/25 05:31 98 H 98 04/05/25 05:30 16 04/05/25 05:26 102 H 96 04/05/25 05:21 103 H 98 04/05/25 05:16 101 H 97 04/05/25 05:11 98 H 99 04/05/25 05:06 104 H 98 04/05/25 05:01 108 H 99 04/05/25 04:57 106 H 138/84 04/05/25 04:56 105 H 99 04/05/25 04:51 108 H 100 04/05/25 04:46 112 H 97 04/05/25 04:45 37.4 C 16 04/05/25 04:45 16 04/05/25 04:41 106 H 97 04/05/25 04:36 99 H 97 04/05/25 04:31 106 H 97 04/05/25 04:26 100 H 97 04/05/25 04:21 106 H 97 04/05/25 04:16 100 H 97 04/05/25 04:11 103 H 97 04/05/25 04:06 102 H 97 04/05/25 04:01 102 H 97 04/05/25 04:00 16 04/05/25 03:57 111 H 121/80 04/05/25 03:56 107 H 98 04/05/25 03:51 105 H 97 04/05/25 03:46 110 H 97 04/05/25 03:41 103 H 98 04/05/25 03:36 101 H 97 04/05/25 03:31 102 H 97 04/05/25 03:26 100 H 98 04/05/25 03:21 101 H 98 04/05/25 03:16 100 H 98 04/05/25 03:11 100 H 97 04/05/25 03:06 101 H 97 04/05/25 03:01 98 H 98 04/05/25 03:00 16 04/05/25 02:57 110 H 128/80 04/05/25 02:56 100 H 98 04/05/25 02:51 99 H 98 04/05/25 02:46 100 H 98 04/05/25 02:41 99 H 98 04/05/25 02:36 98 H 98 04/05/25 02:31 99 H 98 04/05/25 02:26 101 H 98 04/05/25 02:21 96 H 98 04/05/25 02:16 95 H 98 04/05/25 02:11 93 H 99 04/05/25 02:06 98 H 100 04/05/25 02:01 100 H 100 04/05/25 02:00 04/05/25 01:56 98 04/05/25 01:56 90 04/05/25 01:56 95 H 130/78 04/05/25 01:55 16 04/05/25 01:51 86 99 04/05/25 01:46 89 100 04/05/25 01:41 92 H 156/96 H 100 04/05/25 01:36 95 H 100 04/05/25 01:31 93 H 100 04/05/25 01:26 100 04/05/25 01:26 92 H 04/05/25 01:26 96 H 156/94 H 04/05/25 01:25 16 04/05/25 01:21 91 H 100 04/05/25 01:16 93 H 100 04/05/25 01:11 90 158/91 H 100 04/05/25 01:06 88 100 04/05/25 01:01 88 100 04/05/25 01:00 04/05/25 00:56 100 04/05/25 00:56 88 04/05/25 00:56 91 H 155/94 H 04/05/25 00:55 04/05/25 00:51 91 H 100 04/05/25 00:46 88 100 04/05/25 00:41 90 159/87 H 100 04/05/25 00:40 16 04/05/25 00:36 89 100 04/05/25 00:34 92 H 159/81 H 04/05/25 00:31 87 100 04/05/25 00:26 90 171/89 H 100 04/05/25 00:25 37.2 C 16 04/05/25 00:21 87 99 04/05/25 00:16 92 H 99 04/05/25 00:11 98 04/05/25 00:11 90 04/05/25 00:11 96 H 136/77 04/05/25 00:10 16 04/05/25 00:06 94 H 98 04/05/25 00:01 96 H 95 04/05/25 00:00 04/04/25 23:56 93 H 04/04/25 23:56 123/71 04/04/25 23:55 16 04/04/25 23:54 97 04/04/25 23:54 95 H 04/04/25 23:49 97 04/04/25 23:49 100 H 04/04/25 23:44 97 04/04/25 23:44 103 H 04/04/25 23:39 99 04/04/25 23:39 98 H 04/04/25 23:35 92 04/04/25 23:35 103 H 04/04/25 23:34 98 04/04/25 23:34 95 H 04/04/25 23:29 98 04/04/25 23:29 96 H 04/04/25 23:27 101 H 04/04/25 23:27 117/64 04/04/25 23:24 98 04/04/25 23:24 86 04/04/25 23:23 89 L 04/04/25 23:23 85 04/04/25 23:19 97 04/04/25 23:19 87 04/04/25 23:16 86 04/04/25 23:16 108/56 L 04/04/25 23:14 98 04/04/25 23:14 86 04/04/25 23:10 16 04/04/25 23:10 38.0 C H 16 04/04/25 23:09 97 04/04/25 23:09 87 04/04/25 23:06 91 H 04/04/25 23:06 116/58 L 04/04/25 23:04 97 04/04/25 23:04 83 04/04/25 22:59 98 04/04/25 22:59 94 H 04/04/25 22:56 91 H 04/04/25 22:56 112/59 L 04/04/25 22:54 97 04/04/25 22:54 92 H 04/04/25 22:49 97 04/04/25 22:49 82 04/04/25 22:47 82 04/04/25 22:47 118/60 04/04/25 22:44 97 04/04/25 22:44 82 04/04/25 22:39 98 04/04/25 22:39 99 H 04/04/25 22:37 86 04/04/25 22:37 121/62 04/04/25 22:34 98 04/04/25 22:34 85 04/04/25 22:29 98 04/04/25 22:29 94 H 04/04/25 22:26 86 04/04/25 22:26 114/62 04/04/25 22:24 98 04/04/25 22:24 84 04/04/25 22:19 98 04/04/25 22:19 82 04/04/25 22:16 83 04/04/25 22:16 109/63 04/04/25 22:15 16 04/04/25 22:14 98 04/04/25 22:14 88 04/04/25 22:09 98 04/04/25 22:09 96 H 04/04/25 22:07 89 04/04/25 22:07 132/83 04/04/25 22:04 98 04/04/25 22:04 98 H 04/04/25 22:00 16 04/04/25 22:00 16 04/04/25 21:59 98 04/04/25 21:59 102 H 04/04/25 21:57 93 H 04/04/25 21:57 131/77 04/04/25 21:54 98 04/04/25 21:54 91 H 04/04/25 21:49 98 04/04/25 21:49 97 H 04/04/25 21:47 96 H 04/04/25 21:47 141/83 H 04/04/25 21:44 98 04/04/25 21:44 93 H 04/04/25 21:39 99 04/04/25 21:39 94 H 04/04/25 21:38 102 H 04/04/25 21:38 143/77 H 04/04/25 21:34 98 04/04/25 21:34 91 H 04/04/25 21:29 98 04/04/25 21:29 91 H 04/04/25 21:27 104 H 04/04/25 21:27 145/77 H 04/04/25 21:24 98 04/04/25 21:24 100 H 04/04/25 21:19 98 04/04/25 21:19 92 H 04/04/25 21:17 89 04/04/25 21:17 131/75 04/04/25 21:14 98 04/04/25 21:14 84 04/04/25 21:09 98 04/04/25 21:09 90 04/04/25 21:08 89 04/04/25 21:08 134/74 04/04/25 21:04 99 04/04/25 21:04 89 04/04/25 21:00 16 04/04/25 21:00 16 04/04/25 21:00 37.5 C 16 04/04/25 20:59 99 04/04/25 20:59 88 04/04/25 20:56 88 04/04/25 20:56 136/75 04/04/25 20:54 99 04/04/25 20:54 92 H 04/04/25 20:49 99 04/04/25 20:49 83 04/04/25 20:47 93 H 04/04/25 20:47 144/85 H 04/04/25 20:44 97 04/04/25 20:44 103 H 04/04/25 20:39 98 04/04/25 20:39 92 H 04/04/25 20:37 87 04/04/25 20:37 129/80 04/04/25 20:35 96 H 04/04/25 20:35 140/76 04/04/25 20:34 98 04/04/25 20:34 100 H 04/04/25 20:29 99 04/04/25 20:29 99 H 04/04/25 20:24 98 04/04/25 20:24 104 H 04/04/25 20:19 99 04/04/25 20:19 86 04/04/25 20:17 96 H 04/04/25 20:17 129/81 04/04/25 20:14 99 04/04/25 20:14 93 H 04/04/25 20:09 100 04/04/25 20:09 88 04/04/25 20:06 87 04/04/25 20:06 125/74 04/04/25 20:04 99 04/04/25 20:04 91 H 04/04/25 20:00 16 04/04/25 19:59 100 04/04/25 19:59 88 04/04/25 19:56 97 H 04/04/25 19:56 118/73 04/04/25 19:54 100 04/04/25 19:54 89 04/04/25 19:49 100 04/04/25 19:49 91 H 04/04/25 19:47 90 04/04/25 19:47 117/69 04/04/25 19:44 100 04/04/25 19:44 100 H 04/04/25 19:39 99 04/04/25 19:39 103 H 04/04/25 19:38 100 H 04/04/25 19:38 140/85 04/04/25 19:34 99 04/04/25 19:34 106 H
[2025-04-05 07:38] LABS: Albumin Level 2.6 gm/dl (3.4-5.0); BUN Creatinine Ratio 10.1 (10-20); Bilirubin,Total 0.5 mg/dl (0.2-1.0); Calcium 7.4 mg/dl (8.6-10.3); Creatinine Clr Calc Pharmacy 72.5 ml/min; Globulin 2.5 gm/dl (2.5-4.0); Potassium 4.5 mmol/L (3.5-5.1); Total Protein 5.1 gm/dl (6.0-8.3)
[2025-04-06 06:27] LABS: Hematocrit (blood only) 31.2 % (37.0-47.0); Hemoglobin 10.2 g/dl (12.0-16.0)
--- NOTE | 2025-04-06 08:20 | Obstetrical Progress Note ---
Date of Service April 06, 2025 Assessment & Plan (1) Encounter for assessment: satisfactory exam MgSO4 stopped 8 hours ago. would like to be discharged so she can go [place] [facility] [place] with the baby so far after elevated BP's during transfer of the baby, BP's have been normal will watch BP until late this afternoon, if still normal will discharge with follow up for BP check in 1-2 days visit type: exam and care immediately after delivery Qualified Code(s): Z39.0 - Encounter for care and examination of mother immediately after delivery Subjective Ambulation: ambulating normally Voiding: no voiding problems Passing Gas:: Yes Diet Tolerance:: regular diet Lochia:: Small baby transferred to [facility] for mec aspiration diagnosis in the middle of the night so was understandably stressed. BP elevated at that time but no PIH symptoms. given 1 dose of Nifedipine and BP has now normalized. still no PIH symptoms this morning. Review of Systems All systems reviewed & are unremarkable except as noted in HPI & below Physical Exam Constitutional WD/WN, vitals as above Psychiatric A+Ox3, euthymic affect Genitourinary OB Exam Abdomen: + fundal height Fundus: + firm and + relation to umbilicus (1 below) Results & Data Vital Signs (Past 12 Hours) Vital Signs Temp Pulse Pulse Resp BP BP Pulse Ox 04/06/25 07:30 98.2 F 80 18 123/81 96 04/06/25 04:05 128/74 04/06/25 02:58 173/132 H 04/06/25 02:55 180/122 H 04/06/25 01:25 182/122 H 04/06/25 01:20 98.1 F 76 14 161/106 H 04/05/25 23:42 90 96 04/05/25 23:37 87 96 04/05/25 23:32 94 H 97 04/05/25 23:27 93 H 97 04/05/25 23:22 89 96 04/05/25 23:17 83 96 04/05/25 23:12 86 96 04/05/25 23:07 84 96 04/05/25 23:02 87 95 04/05/25 22:57 87 129/72 96 04/05/25 22:52 85 96 04/05/25 22:47 106 H 96 04/05/25 22:42 84 96 04/05/25 22:37 86 96 04/05/25 22:32 80 95 04/05/25 22:27 84 95 04/05/25 22:22 86 96 04/05/25 22:17 85 96 04/05/25 22:15 18 04/05/25 22:12 80 96 04/05/25 22:07 81 96 04/05/25 22:02 83 97 04/05/25 21:57 79 124/65 97 04/05/25 21:52 83 96 04/05/25 21:47 80 96 04/05/25 21:42 82 97 04/05/25 21:37 89 96 04/05/25 21:32 82 97 04/05/25 21:27 83 96 04/05/25 21:22 82 96 04/05/25 21:17 83 97 04/05/25 21:12 83 96 04/05/25 21:07 80 97 04/05/25 21:02 84 96 04/05/25 20:57 79 131/76 97 04/05/25 20:52 79 97 04/05/25 20:47 72 97 04/05/25 20:42 85 96 04/05/25 20:37 89 96 04/05/25 20:32 92 H 97 04/05/25 20:27 90 96 04/05/25 20:22 85 97 04/05/25 20:17 90 97 04/05/25 20:15 18 O2 Del Method 04/06/25 07:30 Room Air 04/06/25 04:05 04/06/25 02:58 04/06/25 02:55 04/06/25 01:25 04/06/25 01:20 Room Air 04/05/25 23:42 04/05/25 23:37 04/05/25 23:32 04/05/25 23:27 04/05/25 23:22 04/05/25 23:17 04/05/25 23:12 04/05/25 23:07 04/05/25 23:02 04/05/25 22:57 04/05/25 22:52 04/05/25 22:47 04/05/25 22:42 04/05/25 22:37 04/05/25 22:32 04/05/25 22:27 04/05/25 22:22 04/05/25 22:17 04/05/25 22:15 04/05/25 22:12 04/05/25 22:07 04/05/25 22:02 04/05/25 21:57 04/05/25 21:52 04/05/25 21:47 04/05/25 21:42 04/05/25 21:37 04/05/25 21:32 04/05/25 21:27 04/05/25 21:22 04/05/25 21:17 04/05/25 21:12 04/05/25 21:07 04/05/25 21:02 04/05/25 20:57 04/05/25 20:52 04/05/25 20:47 04/05/25 20:42 04/05/25 20:37 04/05/25 20:32 04/05/25 20:27 04/05/25 20:22 04/05/25 20:17 04/05/25 20:15
--- NOTE | 2025-04-07 06:29 | Obstetrical Progress Note ---
Date of Service April 07, 2025 Assessment & Plan (1) Preeclampsia: (2) Encounter for care and examination after delivery: Plan Pt is 29 yo post- day 3 s/p at 39w1d. and delivery complicated by pre-eclampsia and HTN. Pt required multiple dose of nifedipine yesterday for uncontrolled HTN. Pt's BP this morning is in range, but upon waking BP increased to 144/100. - Encourage ambulation - Monitor BP and continue nifedipine 30mg PO BID - Pain control with Tylenol and ibuprofen - Anticipate DC today to 04/07 Admission and Anticipated Discharge Date Admission Date: April 04, 2025 Subjective Pt is 29 yo post- day 3 s/p at 39w1d. and delivery complicated by pre-eclampsia and HTN. Pt required multiple doses of nifedipine yesterday for uncontrolled HTN. Ambulation:In room Voiding:voiding normally Passing gas: yes BM: No Diet tolerance:regular diet Lochia:bloody, no clots Feeding type: breast Current pain level: 3 /10 improved with ibuprofen Resting comfortably this morning in NAD. Denies LEWIS, CP, SOB, dizziness, changes in vision, RUQ pain, N/V/D, LE pain/swelling. Review of Systems Review of Systems: As per HPI Physical Exam Constitutional: WD/WN, vitals as above Respiratory: normal respiratory effort, lungs clear to auscultation Cardiovascular: RRR, no murmur, no edema Gastrointestinal (Abdomen): normal bowel sounds, soft, nontender, no hepatosplenomegaly Uterine fundus firm and at 2 cm below level of umbilicus Neurologic: PERRL, EOMI, accommodation nl, no face palsy, no dysarthria Moving all 4 extremities on command Psychiatric: A+Ox3, euthymic affect Results & Data Vital Signs (Past 12 Hours) Vital Signs Temp Pulse Resp BP O2 Del Method 04/07/25 03:35 108/68 04/06/25 22:59 36.6 C 87 16 131/82 Room Air 04/06/25 19:40 154/94 H 04/06/25 19:30 36.7 C 105 H 20 172/111 H Room Air 04/06/25 18:35 164/108 H Resident Activity Tracking Resident Involvement: Resident Care Provided Care Provided: Adult Hospital Medicine
--- NOTE | 2025-04-07 23:51 | Obstetrical Progress Note ---
Date of Service April 07, 2025 Assessment & Plan (1) hypertension: (2) Preeclampsia: (3) Encounter for care and examination after delivery: Plan Have seen and evaluated pt and reviewed with her course thus far. Discussed her labile bps despite using more medication. She expresses that she has responded to procardia in past and I agree but explained have been giving her more long acting medication of same type without seeing improvement. What is good is that she has no sx and feels well. She knows to let us know about headache at any point. She does discuss with me role that being anxious and stressed can be playing in her bp and while I think it is reasonable to say that may drive up her sbp at times, i am not satisfied with the medication management of her dbp at moments. We can opt to continue to use nifedipine and guidelines would suggest can get to 180mg xl daily (90mg bid). We can opt to layer another medication. If any worsening sx, would likely need to bring bp down more urgently. She has at times had pulse where i think beta petar might be good addition and at no time has had a pulse where it would be contraindicated, so I think still room to try this. For now after discussion will given immed release nifed 20mg now. Can see if bp improves, if so, then plan 4hr value to allow pt to rest and if responds, plan increase dose to 90mg xl bid in am. Will ensure no worsening labs and she agrees and has no problem with blood stick now. I don't think her swelling warrants use of lasix at moment as not really worse from admission and not that significant on exam. I don't see that nsaids are contributor. I do think stress can make her sbp higher but explained to pt really need to work to bring down dbp as well and bp goals reviewed, ideally <140/90 but would be improved with <150/100. She asks questions and they are answered to the best of my ability. I am trying to avoid transfer back to use iv meds but not sure we won't get there, explained to pt. Admission and Anticipated Discharge Date Admission Date: April 04, 2025 Subjective pt denies nath, admits to anxiety as the cuff is on her arm. no visual change. no worsening swelling. eating and drinking and peeing normal. baby in nicu at [facility] [place]. she expresses concern but accepting of this situation. history of bp as i can tell is as follows, after 24hr mag pp, began to show elevated bp requiring stat dosing of immed release nifed 20mg beginning at 3am on 04/06, this was after baby transfer to [facility]. It appears she was given xl nifed at that morning time 30mg 04/06, but then at about 4pm on monday pm 04/06 she required more doses of immed release nifed and then given 30mg xl in pm. Thereby inc dose to 30mg xl bid. Then required during course of evaluation on 04/07, more immediate release nifedipine such that her dosing was changed to 60mg xl bid. She did receive that 930pm tonight but sadly her bp has increased again. Called by nursing and so came to see pt. Of note her bps are labile, as is her pulse. She does feel stress during day with baby being away and with concern about her bp. She wants me to know that her bps overnight last night were normal and she did have some improved values through the day today. She denies asthma, has not used nsaids in a while. Denies cp or sob. Physical Exam Constitutional: WD/WN, vitals as above Respiratory: normal respiratory effort, lungs clear to auscultation Cardiovascular: Rate/Rhythm: regular rate and regular rhythm Musculoskeletal: tr edema bilateral LE, +1 edema pedally bilaterally. no edema of thighs. Psychiatric: A+Ox3, euthymic affect (no distress) Orientation: alert Eye Contact: good eye contact Results & Data Vital Signs (Past 12 Hours) Vital Signs Temp Pulse Resp BP Pulse Ox O2 Del Method 04/07/25 22:30 90 166/113 H 04/07/25 21:31 79 171/111 H 04/07/25 19:03 135 H 156/90 H 04/07/25 17:20 104 H 183/114 H 99 Room Air 04/07/25 15:07 98.2 F 123 H 20 160/101 H 99 Room Air 04/07/25 14:53 139 H 150/108 H PG Care Time/CCT Total # of Minutes Spent Total Time Spent with Patient: Total time spent is greater than 50% in coordination of care (as documented) at patient's floor/unit and/or counseling patient: Coding Level of Care Code None Diagnoses hypertension O16.5 Preeclampsia O14.90 Encounter for care and examination after delivery Z39.2
[2025-04-08 00:11] LABS: Hematocrit (blood only) 34.5 % (37.0-47.0); Hemoglobin 11.3 g/dl (12.0-16.0); Mean Corpuscular Hemoglobin 29.4 pg (25.0-34.0); Mean Corpuscular Hgb Conc 32.8 g/dL (32.0-36.0); Mean Corpuscular Volume 89.8 fL (80.0-100.0); Platelet Count 202 K/uL (130-400); RDW Coefficient of Variation 13.1 % (11.5-14.5); RDW Standard Deviation 42.7 fL (36.4-46.3); Red Blood Count 3.84 M/uL (4.20-5.40); White Blood Count 9.69 K/ul (4.8-10.8)
[2025-04-08 00:37] LABS: Albumin Level 2.7 gm/dl (3.4-5.0); Bilirubin Direct 0.1 mg/dl (0-0.2); Bilirubin,Total 0.4 mg/dl (0.2-1.0); Calcium 9.2 mg/dl (8.6-10.3); Potassium 4.4 mmol/L (3.5-5.1)
[2025-04-08 00:43] LABS: Albumin Globulin Ratio 0.9 (0.9-2); BUN Creatinine Ratio 18.8 (10-20); Creatinine Clr Calc Pharmacy 101.5 ml/min; Globulin 3.1 gm/dl (2.5-4.0); Total Protein 5.8 gm/dl (6.0-8.3)
--- NOTE | 2025-04-08 01:17 | Obstetrical Progress Note ---
Date of Service April 08, 2025 Assessment & Plan (1) hypertension: Plan recent immed release nifed did not improve bp at all, bettina dbp. labs reviewed and creat better, lfts normal. plts normal. no sx. i feel prudent to try to bring bp down with iv labetalol and switch to po if possible as the nifedipine does not seem to be moving the needle on bps at all bettina dbp. pt asks why it helped before and not now and i explained that i cannot explain why but not sure if using same med and seeing no results is in her best interest. she agrees to go to LD and will start with iv med and go from there. 20mg iv now. Admission and Anticipated Discharge Date Admission Date: April 04, 2025 Subjective pt without complaints. partner here from visit with baby who is doing well, he got to feed and hold baby. Physical Exam Constitutional: WD/WN, vitals as above Results & Data Vital Signs (Past 12 Hours) Vital Signs Temp Pulse Resp BP Pulse Ox O2 Del Method 04/08/25 00:48 102 H 158/117 H 04/07/25 23:55 98.4 F 96 H 16 172/114 H 99 Room Air 04/07/25 22:30 90 166/113 H 04/07/25 21:31 79 171/111 H 04/07/25 19:03 135 H 156/90 H 04/07/25 17:20 104 H 183/114 H 99 Room Air 04/07/25 15:07 98.2 F 123 H 20 160/101 H 99 Room Air 04/07/25 14:53 139 H 150/108 H PG Care Time/CCT Total # of Minutes Spent Total Time Spent with Patient: Total time spent is greater than 50% in coordination of care (as documented) at patient's floor/unit and/or counseling patient: Coding Level of Care Code None Diagnoses hypertension O16.5
--- NOTE | 2025-04-08 04:05 | Obstetrical Progress Note ---
Date of Service April 08, 2025 Assessment & Plan (1) hypertension: Plan has responded well to iv labetalol. plan po labetalol. if bp wnl by 6am, will plan transfer back to floor and start med thereafter. Admission and Anticipated Discharge Date Admission Date: April 04, 2025 Subjective Bps have responded well to one dose iv labetalol, pulse 71. Results & Data Vital Signs (Past 12 Hours) Vital Signs Temp Pulse Pulse Resp BP BP Pulse Ox 04/08/25 03:52 71 118/70 04/08/25 03:22 84 129/75 04/08/25 02:52 81 125/78 04/08/25 02:21 81 131/85 04/08/25 02:16 78 127/81 04/08/25 02:11 78 140/83 04/08/25 02:06 83 136/97 04/08/25 02:01 85 153/100 H 04/08/25 01:56 85 146/96 H 04/08/25 01:56 85 146/96 H 04/08/25 01:51 86 152/98 H 04/08/25 00:48 102 H 158/117 H 04/07/25 23:55 98.4 F 96 H 16 172/114 H 99 04/07/25 22:30 90 166/113 H 04/07/25 21:31 79 171/111 H 04/07/25 19:03 135 H 156/90 H 04/07/25 17:20 104 H 183/114 H 99 O2 Del Method 04/08/25 03:52 04/08/25 03:22 04/08/25 02:52 04/08/25 02:21 04/08/25 02:16 04/08/25 02:11 04/08/25 02:06 04/08/25 02:01 04/08/25 01:56 04/08/25 01:56 04/08/25 01:51 04/08/25 00:48 04/07/25 23:55 Room Air 04/07/25 22:30 04/07/25 21:31 04/07/25 19:03 04/07/25 17:20 Room Air PG Care Time/CCT Total # of Minutes Spent Total Time Spent with Patient: Total time spent is greater than 50% in coordination of care (as documented) at patient's floor/unit and/or counseling patient: Coding Level of Care Code None Diagnoses hypertension O16.5
--- NOTE | 2025-04-08 08:12 | Obstetrical Progress Note ---
Date of Service April 08, 2025 Assessment & Plan (1) hypertension: (2) Encounter for care and examination after delivery: (3) Preeclampsia: Plan stable doing well. bps responded well to iv labetalol 20mg x 1. plan to start po labetalol tid 200mg, 1st dose 9am. pt aware and agreeable. no other concerning sx. labs overnight normal/stable. pt trying to rest. had contemplated pumping, can cont to work on if desires, [place] [facility] [place]. will see how bps do today. pt aware of need for stable bps to allow for dc. Subjective Ambulation: ambulating normally Voiding: no voiding problems Diet Tolerance:: regular diet Lochia:: Small Feeding Type:: breast feeding had beentrying to pump. uncontrolled pp htn, had labetalol iv last night. trying to rest. has anxiety, [place] [facility] and partner says may be dc'd today or tomorrow. no nath, visual change, no ruq pain. Constitutional: + as per Subjective / HPI Physical Exam Constitutional WD/WN, vitals as above Gastrointestinal (Abdomen) Inspection/Auscultation: abdomen normal to inspection Percussion/Palpation: abdomen soft Fundus firm 1-2cm down Neurologic grossly normal Psychiatric A+Ox3, euthymic affect Results & Data Vital Signs (Past 12 Hours) Vital Signs Temp Pulse Pulse Resp BP BP Pulse Ox 04/08/25 07:01 98.1 F 82 16 128/83 99 04/08/25 06:01 74 117/75 04/08/25 04:53 72 99/57 L 04/08/25 04:23 76 123/69 04/08/25 03:52 71 118/70 04/08/25 03:22 84 129/75 04/08/25 02:52 81 125/78 04/08/25 02:21 81 131/85 04/08/25 02:16 78 127/81 04/08/25 02:11 78 140/83 04/08/25 02:06 83 136/97 04/08/25 02:01 85 153/100 H 04/08/25 01:56 85 146/96 H 04/08/25 01:56 85 146/96 H 04/08/25 01:51 86 152/98 H 04/08/25 00:48 102 H 158/117 H 04/07/25 23:55 98.4 F 96 H 16 172/114 H 99 04/07/25 22:30 90 166/113 H 04/07/25 21:31 79 171/111 H O2 Del Method 04/08/25 07:01 Room Air 04/08/25 06:01 04/08/25 04:53 04/08/25 04:23 04/08/25 03:52 04/08/25 03:22 04/08/25 02:52 04/08/25 02:21 04/08/25 02:16 04/08/25 02:11 04/08/25 02:06 04/08/25 02:01 04/08/25 01:56 04/08/25 01:56 04/08/25 01:51 04/08/25 00:48 04/07/25 23:55 Room Air 04/07/25 22:30 04/07/25 21:31
--- NOTE | 2025-04-08 21:28 | Obstetrical Progress Note ---
Date of Service April 08, 2025 Assessment & Plan Admission and Anticipated Discharge Date Admission Date: April 04, 2025 Subjective Blood pressures are excellent earlier today although this evening they have worsened we have done 2 doses of labetalol 200 mg p.o. 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
--- NOTE | 2025-04-09 06:03 | Obstetrical Progress Note ---
Date of Service April 09, 2025 Assessment & Plan (1) Preeclampsia: (2) Encounter for care and examination after delivery: Plan Pt is 29 yo post- day 5 s/p at 39w1d. and delivery complicated by pre-eclampsia and HTN. Pt's BP was stable yesterday while on PO labetalol, but spiked in the evening. She was given IV labetalol and BPs returned to normal range. Early this morning, BP's spiked again. Pt's baby was released from [facility] and FOB brought baby to stay in room with mom. Pt continues with significant anxiety - Resume IV labetalol on L&D floor - Ordered CMP - Consult medicine for BP management - Pain control with Tylenol and ibuprofen Admission and Anticipated Discharge Date Admission Date: April 04, 2025 Supervising Physician Co-Signing Physician Notes Resident Physician Supervision Note: I was present with Dr. Ferraro during the history and exam. I discussed the case with the resident and agree with the findings and plan as documented in the note. Any exceptions or clarifications are listed here: [None] Documented By: Melissa Noyola MD, FACOG Subjective Pt was transferred to L&D yesterday evening due to continued elevated Ps. She was given IV labatolol, which reduced to pressures to normal 120-130/80's. Pt was transferred back to floor and pt reports she was told she would not have BPs taken overnight. However, nursing came in to take BPs at 1am. Pt noting that repeated BP monitoring is worsening her anxiety despite her baby returning from hospital in [place]. Pt continues to voice anxiety and concern regarding her continued elevated BPs. She is wondering why her pressures under control sometimes, but then returned to high without cause. Pt denies CP, SOB, LEWIS, changes in vision, abdominal pain, N/V/D/C, LE swelling, or calf cramping. Pt continues with uterine cramping as she has returned to breast feeding her baby. Lochia is small amount of bloody/watery discharge Review of Systems Review of Systems: As per HPI Physical Exam Constitutional: WD/WN, vitals as above Respiratory: normal respiratory effort, lungs clear to auscultation Cardiovascular: RRR, no murmur, no edema Gastrointestinal (Abdomen): normal bowel sounds, soft, nontender, no hepatosplenomegaly Uterine fundus in firm and 3 cm below umbilicus Neurologic: PERRL, EOMI, accommodation nl, no face palsy, no dysarthria Psychiatric: A+Ox3, euthymic affect Results & Data Vital Signs (Past 12 Hours) Vital Signs Temp Pulse Pulse Resp BP BP Pulse Ox 04/09/25 01:30 171/112 H 04/09/25 00:31 69 126/80 04/09/25 00:00 83 130/86 04/08/25 23:31 83 04/08/25 23:31 124/85 04/08/25 23:01 77 04/08/25 23:01 128/86 04/08/25 22:26 71 04/08/25 22:26 124/83 04/08/25 22:23 99 04/08/25 22:23 87 04/08/25 22:21 85 04/08/25 22:21 131/85 04/08/25 22:18 97 04/08/25 22:18 84 04/08/25 22:16 82 04/08/25 22:16 137/78 04/08/25 22:13 97 04/08/25 22:13 86 04/08/25 22:11 81 04/08/25 22:11 142/80 H 04/08/25 22:08 97 04/08/25 22:08 87 04/08/25 22:06 86 04/08/25 22:06 136/86 04/08/25 22:03 97 04/08/25 22:03 79 04/08/25 22:00 86 04/08/25 22:00 145/89 H 04/08/25 21:58 97 04/08/25 21:58 95 H 04/08/25 21:55 89 04/08/25 21:55 150/89 H 04/08/25 21:53 97 04/08/25 21:53 90 04/08/25 21:51 87 04/08/25 21:51 155/88 H 04/08/25 21:48 97 04/08/25 21:48 92 H 04/08/25 21:46 90 04/08/25 21:46 172/95 H 04/08/25 21:45 37.0 C 20 04/08/25 21:43 98 04/08/25 21:43 92 H 04/08/25 21:22 108 H 172/122 H 04/08/25 20:33 101 H 179/121 H 04/08/25 20:25 105 H 165/111 H 04/08/25 19:40 109 H 182/135 H 04/08/25 19:28 37.3 C 116 H 18 183/127 H 99 O2 Del Method 04/09/25 01:30 04/09/25 00:31 04/09/25 00:00 04/08/25 23:31 04/08/25 23:31 04/08/25 23:01 04/08/25 23:01 04/08/25 22:26 04/08/25 22:26 04/08/25 22:23 04/08/25 22:23 04/08/25 22:21 04/08/25 22:21 04/08/25 22:18 04/08/25 22:18 04/08/25 22:16 04/08/25 22:16 04/08/25 22:13 04/08/25 22:13 04/08/25 22:11 04/08/25 22:11 04/08/25 22:08 04/08/25 22:08 04/08/25 22:06 04/08/25 22:06 04/08/25 22:03 04/08/25 22:03 04/08/25 22:00 04/08/25 22:00 04/08/25 21:58 04/08/25 21:58 04/08/25 21:55 04/08/25 21:55 04/08/25 21:53 04/08/25 21:53 04/08/25 21:51 04/08/25 21:51 04/08/25 21:48 04/08/25 21:48 04/08/25 21:46 04/08/25 21:46 04/08/25 21:45 Room Air 04/08/25 21:43 04/08/25 21:43 04/08/25 21:22 04/08/25 20:33 04/08/25 20:25 04/08/25 19:40 04/08/25 19:28 Room Air Resident Activity Tracking Resident Involvement: Resident Care Provided Care Provided: Adult Hospital Medicine
--- NOTE | 2025-04-09 07:20 | Communication Note ---
Date of Service: April 09, 2025 Challenging situation The patient has had elevated blood pressure refractory initially to nifedipine and then responsive to IV labetalol and then put on p.o. labetalol her baby was also transferred out for medical reasons but now is back at hospital after spending some time at the end of the patient does admit she has stress and anxiety as a baseline. She has no headache however last night her blood pressures again reached the severely elevated range I transferred her over to labor and delivery as mentioned due to high census and her blood pressure significantly improving she was transferred back to the floor however the first blood pressure in the morning is 186/121 this despite her p.o. labetalol. Note the p.o. labetalol was given after the blood pressure I reviewed with the patient no headache however dangerously high blood pressure will transfer back to the floor I will initiate 20 mg IV labetalol asked for stat medical hosp italist consult to help with management of refractory blood pressure I will talk with Dr. Mesa who is coming on-call as well for continuity of management
[2025-04-09 07:45] LABS: Eosinophils # (auto) 0.14 K/uL (0.00-0.50); Eosinophils % (auto) 1.8 %; Hematocrit (blood only) 31.8 % (37.0-47.0); Hemoglobin 10.5 g/dl (12.0-16.0); Immature Granulocytes # (auto) 0.05 K/uL (0.01-0.20); Immature Granulocytes % (auto) 0.6 %; Lymphocytes # (auto) 1.25 K/uL (1.20-3.40); Mean Corpuscular Hemoglobin 29.7 pg (25.0-34.0); Mean Corpuscular Volume 90.1 fL (80.0-100.0); Mean Platelet Volume 10.6 fL (9.4-12.4); Monocytes # (auto) 0.34 K/uL (0.11-0.59); Monocytes % (auto) 4.3 %; Neutrophils # (auto) 6.04 K/uL (1.40-6.50); Neutrophils % (auto) 77.3 %; Platelet Count 173 K/uL (130-400); RDW Coefficient of Variation 13.2 % (11.5-14.5); RDW Standard Deviation 42.4 fL (36.4-46.3); Red Blood Count 3.53 M/uL (4.20-5.40); White Blood Count 7.82 K/ul (4.8-10.8)
[2025-04-09 07:59] LABS: Albumin Globulin Ratio 1.1 (0.9-2); Albumin Level 2.9 gm/dl (3.4-5.0); Bilirubin,Total 0.5 mg/dl (0.2-1.0); Calcium 8.6 mg/dl (8.6-10.3); Creatinine Clr Calc Pharmacy 96.9 ml/min; Globulin 2.7 gm/dl (2.5-4.0); Potassium 4.2 mmol/L (3.5-5.1); Total Protein 5.6 gm/dl (6.0-8.3)
--- NOTE | 2025-04-09 09:01 | Communication Note ---
Date of Service: April 09, 2025 Patient now in labor and delivery and pressure was 145/95 and then 15 min later 138/92. The blood pressures that the patient had taken this am were before her labatolol dose, which was given at 7am. Patient got IV labatolol here in labor and delivery last night at around 9 after her pressures were elevated on the floor. This was very successful. then transferred back to the floor and her first pressure was elevated. Then she refused to have any more pressures taken. Her first pressure this am was elevated and decision made to move back. Patient has no s/s of pet and labs have returned normal this am, so do not see a need to re-Mag at this juncture. Will hold on further dosing and await recommendations from hospitalist. I spoke with the patient about the situation and noted that I understand how frustrating this is. Discussed that it is not making alot of sense clinically.
--- NOTE | 2025-04-09 10:29 | Hospitalist Consultation ---
Date of Consultation April 09, 2025 Assessment & Plan (1) Preeclampsia: (2) hypertension: Plan Post hypertension / preeclampsia - preeclampsia already treated appropriately by OB team. No symptoms/signs HELLP syndrome. Suspect labile BP due to initial rise after coming off magnesium infusion, using labetalol (short half life 6-8 hours), anxiety/stress and multiple changes of medications including instant release formulations. Her blood pressure was best controlled in the morning of 04/08 (using a combination of labetalol IV/PO and nifedipine) and despite one off BP of 99/57 she has never been symptomatic with a low (or high) blood pressure. Her better blood pressure control on the morning of the likely due to having both the XL nifedipine (from the prior day, totalling 90mg) and PO labetalol. Even though her current BP is 138/92 she has already demonstrated yesterday evening that labetalol alone is unlikely to manage her BP. Therefore recommend adding nifedipine XL 30mg PO daily to her regimen. This could be increased to BID if her BP remains elevated sBP > 140 and OBGYN recommend staying overnight but I think if her BP remains similar throughout the day I see no reason from a medical stand point she cannot be discharged but will defer this to her primary OB team. She was advised to measure her BP at home prior to taking her medication in the morning and inform her Ob team if sBP < 100 for further advice or if she starts to become dizzy on standing as she is likely to need less BP medication the further our she is from her delivery. Thank you for the consult. If she remains in the hospital the medicine team will continue to follow along with her. If she does remain in hospital I recommend against further instant release and IV antihypertensives. Please reach out to medicine for advice if her sBP > 160. History of Present Illness Reason for Consultation: refractory BP Attending Physician: Roxanna Mesa MD, FACOG History of Present Illness Rachel De La Cruz is a 29 year old female s/p vaginal delivery on April 04 with pre-eclampsia. Consult placed this morning due to labile blood pressures post after preeclampsia. Patient is asymptotic of both high and low blood pressures. She does note some anxiety and stress related to her having her blood pressure taken. She reports pre-eclampsia with her prior but was not in hospital so long but cannot remember whether she was discharged on any medications. She was not on any anti-hypertensives immediately before or during this . Antihypertensives this admission have varied. During delivery she was given IV labetalol and initially post did not require antihypertensives. On 04/06 she was started on 20mg IR PO nifedipine then in the afternoon given both nifedipine XL 30mg and shortly after IR 10mg x2. On the morning of 04/07 her BP was up again to 144/100 (effectively the 30mg XL not controlling it) and she was given additional nifedipine XL 30mg with the plan to increase it to BID and in the afternoon IR 20mg. Because of this extra dose of nifedipine needed by the evening her nifedipine XL dose was increased to 60mg PO BID therefore she had a total of 90mg XL on 04/08. She was given another IR dose of nifedipine PO 20mg at midnight and labetalol 20mg IV around 1am. Her BP appeared to be better controlled in the early hours of the morning on 04/08 with the increased dose of XL nifedipine (90mg total that day) extra IR doses of nifedipine and after starting the IV labetalol. She had one BP 99/57 around 5am but reports she was never dizzy or lightheaded. On 04/08 she was switched to labetalol 200mg PO TID and was not given any nifedipine and by the evening her BPs were rising again and she was given both an extra 200mg labetalol PO and 10mg IV. BPs this morning have been 171/112, 186/121, 156/105, 145/95, 138/92. Allergies Allergy/AdvReac Type Severity Reaction Status Date / Time No Known Allergies Allergy Verified 03/27/25 15:35 Home Medications Medication Instructions Recorded Confirmed Type PN no.[id number] 1 mg PO DAILY 09/16/24 04/04/25 History [ Gummies] metoclopramide HCl 10 mg 10 mg PO Q6H #20 tabs 09/23/24 04/04/25 Rx disintegrating tablet aspirin [Baby Aspirin] 81 mg PO DAILY 10/24/24 04/04/25 History breast pump #1 ea 04/06/25 Rx breast pump #1 ea 04/06/25 Rx breast pump #1 ea 04/06/25 Rx breast pump #1 ea 04/06/25 Rx labetalol 200 mg tablet 200 mg PO TID 30 days #90 tabs 04/09/25 Rx nifedipine 30 mg tablet,extended 30 mg PO QAM 30 days #30 tabs 04/09/25 Rx release 24 hr (Procardia XL) Patient History Medical History (Updated 04/07/25 @ 23:59 by Blanka Lala MD, FACOG) Varicella vaccination Surgical History No history of previous surgery Family History Aunt Hypertension Denies family history of Ovarian cancer Breast cancer Colorectal cancer Social History (Updated 09/16/24 @ 14:12 by Charmaine Ellsworth) Smoking Status: Never smoker Do You Dip or Chew Tobacco: No; Hx Alcohol Use: No Hx Substance Use: No Preferred Language: Polish Communication Ability: Effective Supervisor [employer] Required: No Beliefs That Will Affect Care: Spiritual marital status: Legally marital status details: antonieta Odell "Mayra Deshpande (31) [phone] Current Living Situation: Significant Other Current Living Situation Comment: lives with fob, 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, cat-fob changing litter current occupational status: unemployed Feels Safe at Home: Yes Assistive Devices: None Review of Systems Review of Systems: All systems reviewed & are unremarkable except as noted in HPI & below Physical Exam Constitutional: WD/WN, vitals as above Respiratory: normal respiratory effort, lungs clear to auscultation Cardiovascular: RRR, no murmur, no edema Gastrointestinal (Abdomen): Percussion/Palpation: abdomen soft; abdomen nontender (no RUQ pain exam), no guarding and abdomen not rigid Results & Data Results & Data Vital Signs (Past 12 Hours) Vital Signs Temp Pulse Pulse Resp BP BP Pulse Ox 04/09/25 08:59 76 138/92 04/09/25 08:42 79 145/95 H 04/09/25 08:15 36.8 C 79 20 156/105 H 04/09/25 06:41 74 16 186/121 H 98 04/09/25 01:30 171/112 H 04/09/25 00:31 69 126/80 04/09/25 00:00 83 130/86 04/08/25 23:31 83 04/08/25 23:31 124/85 06/24/25 23:01 77 04/08/25 23:01 128/86 O2 Del Method 04/09/25 08:59 04/09/25 08:42 04/09/25 08:15 04/09/25 06:41 Room Air 04/09/25 01:30 04/09/25 00:31 04/09/25 00:00 04/08/25 23:31 04/08/25 23:31 04/08/25 23:01 04/08/25 23:01 Laboratory Results Abnormal lab results 04/09/25 Range/Units 07:29 RBC 3.53 L (4.20-5.40) M/uL Hgb 10.5 L (12.0-16.0) g/dl Hct 31.8 L (37.0-47.0) % Chloride 108 H (98-107) mmol/L Glucose 101 H (70-99(Fasting)) mg/dl Alkaline Phosphatase 110 H (34-104) U/L Total Protein 5.6 L (6.0-8.3) gm/dl Albumin 2.9 L (3.4-5.0) gm/dl PG Care Time/CCT Total # of Minutes Spent Total Time Spent with Patient: Total time spent is greater than 50% in coordination of care (as documented) at patient's floor/unit and/or counseling patient: Coding Level of Care Code 66407 IN/OBS CONSULT LVL 4,60M Diagnoses Preeclampsia O14.90 hypertension O16.5
--- NOTE | 2025-04-09 13:30 | Communication Note ---
Date of Service: April 09, 2025 Nurse contacting me with blood pressure on patient of 181/120. Patient was relaxed and sitting in bed with the baby resting. She is and continues to be a symptomatic. She received last dose of labetalol 200mg at 7 and the dose of Procardia ER 30 around 9am. Appreciate hospitalist consult. I notified Dr. Berry about this and he recommended giving dose of labetolol 200mg now and rechecking blood pressure in 2 hours. Will do so.
--- NOTE | 2025-04-09 15:22 | Communication Note ---
Date of Service: April 09, 2025 bp now 168/116 lying in a quiet dark room Continues to be asymptomatic. Dr. Berry aware. Will give procardia 30 now, repeat in 4hours and then 60 in the am. Patient aware of plan . Also aware that she will likely not be going home tonight.
--- NOTE | 2025-04-10 06:46 | Obstetrical Progress Note ---
Date of Service April 10, 2025 Assessment & Plan (1) hypertension: (2) Encounter for care and examination after delivery: Plan Patient continues to have labile blood pressures. Is currently on Procardia 60 and labetalol 200mg tid. Her pressure in the middle of the night last night was 173/119. She was given both of her medications early per hospitalist. Look forward to their recommendations today. Am leaning toward d/c today with very close f/u in the office given overall pressures are improving. Subjective Ambulation: ambulating normally Voiding: no voiding problems Passing Gas:: Yes Diet Tolerance:: regular diet Lochia:: Small Feeding Type:: breast feeding Patient overall and feeling much better. Denies nath/n/v/ruq pain Physical Exam Constitutional WD/WN, vitals as above Respiratory normal respiratory effort, lungs clear to auscultation Cardiovascular RRR, no murmur, no edema Extremities: + edema (tr); no calf tenderness Gastrointestinal (Abdomen) soft, nt, nd, no ruq pain, ff/nt 3 below u Neurologic patellar DTR's 2+ bilat, sensation intact Psychiatric A+Ox3, euthymic affect Results & Data Vital Signs (Past 12 Hours) Vital Signs Temp Pulse Resp BP Pulse Ox O2 Del Method 04/10/25 03:52 173/119 H 04/10/25 03:50 36.4 C L 81 16 171/113 H 99 Room Air 04/09/25 23:35 36.6 C 88 16 144/92 H 98 Room Air 04/09/25 20:05 Room Air 04/09/25 19:23 125 H 18 129/90 04/09/25 19:21 36.7 C 135 H 16 141/93 H 98 Room Air
--- NOTE | 2025-04-10 08:56 | Communication Note ---
Date of Service: April 10, 2025 Procardia, labetalol given early this AM apx 4A for severe HTN Still waiting for BP recheck There is room to increase the labetalol, HR in 80s. Will avoid increasing Procardia today because of longer half life (seems to be variable but at least 8h), current dose of 60 mg probably not at steady state yet.
--- NOTE | 2025-04-10 12:41 | Hospitalist Progress Note ---
Date of Service April 10, 2025 Assessment & Plan (1) Preeclampsia: (2) hypertension: Plan Preeclampsia with hypertension Proteinuria at time of delivery, renal function has remained normal, LFTs normal so far today BP better controlled with nifedipine XR 60 mg and labetalol 200 mg tid. BP has been labile past days, however, nifedipine will take a few days to be at steady-state after dose changes -increased labetolol to 300 mg tid. don't increase nifedipine today Highly likely that the HTN is related to preeclampsia and severe HTN is not uncommon. Rarely HTN can be presentation of hyperaldosteronism. She lacks hypokalemia, but this doesn't rule it out. Nevertheless, treatment would be the same initially (antihypertensives, spironolactone) -if persisting more than 6 weeks or so, checking renin:johan makes sense She has no recorded hypertension prior to 04/04 (including in 2023 up to a year ago) so other causes of secondary hypertension unlikely and should have presented sooner and not acutely - for example aortic coarctation, UMA, alfonso syndrome Additional common issues would be nsaids (none given here) and fluid overload -trial of lasix 10 mg IV today - 700 mL UOP, afterward BP has been about the same. avoiding dehydration because of No evidence of an BRENDA, renal infarct, stroke -check BMP in AM makes sure still good renal function Admission and Anticipated Discharge Date Admission Date: April 04, 2025 Subjective felt normal midday has some leg edema, not too much though fairly typical amount 6pm had episode of colored lights in vision and vision blurring that last 30 minutes without headache then resolved has hx migraine with aura, previous sx not similar to this all BP checks have been in RUE because of PIV on left Physical Exam Physical Exam: Last 24h vitals reviewed GEN: no acute distress, sitting in bed abbreviated exam because she is currently infant HEENT: pupils equal, sclerae anicteric, moist MM RESP: normal WOB CV: deferred ABD: deferred : no ahumada SKIN: warm and dry, no generalized rashes EXT: wwp 2+ symmetric LE pitting edema NEURO: AOx person, place, and situation. Face symmetric, speech normal, moves 4 ext spontaneously and equally Results & Data Results & Data Vital Signs (Past 12 Hours) Vital Signs Temp Pulse Resp BP Pulse Ox O2 Del Method 04/10/25 10:37 86 14 126/82 98 Room Air 04/10/25 08:18 36.7 C 95 H 16 128/86 97 Room Air 04/10/25 03:52 173/119 H 04/10/25 03:50 36.4 C L 81 16 171/113 H 99 Room Air Laboratory Results reviewed previous labs from 04/08, 04/09 - CBC, BMP heavy proteinuria 04/04 day of delivery LFTs were normal PG Care Time/CCT Total # of Minutes Spent Total Time Spent with Patient: I personally spent: 55 minutes today on clinical care activities including: reviewing chart notes and vital signs reviewing labs reviewing studies discussion with primary team examining and counseling the patient multiple discussions with bedside nurse throughout the day counseling the patient's family writing orders documentation Coding Level of Care Code 59011 SUB INP/OBS CARE 3/50MIN Diagnoses Preeclampsia O14.90 hypertension O16.5
--- NOTE | 2025-04-11 05:52 | Obstetrical Progress Note ---
Date of Service April 11, 2025 Assessment & Plan (1) Preeclampsia: (2) Encounter for care and examination after delivery: Plan Pt is 29 yo post- day 5 s/p at 39w1d. and delivery complicated by pre-eclampsia and HTN. Pt continued with labial BPs yesterday. Dosage of HTN meds were increased, trial of IV lasix on 04/10 without significant change in HTN. - Appreciate Medicine consult. Recommendations as follows: Continue po labetalol 300 TID and po nifedipine 60 qam - Pain control with Tylenol and ibuprofen Admission and Anticipated Discharge Date Admission Date: April 04, 2025 Supervising Physician Co-Signing Physician Notes Resident Physician Supervision Note: I interviewed and examined the patient. Discussed with Dr. Ferraro and agree with findings and plan as documented in the note. Any exceptions or clarifications are listed here: Will check BP after 1400 labetalol dose and if stable and discharge to home with followup in the office for BP check on Saturday 04/14 Documented By: Tiana Mckeon MD, FACOG Subjective Pt reports having some visual changes that lasted for 20 minutes at the end of the day 04/10. She reports intermittent mild LEWIS, but slept well overnight. She denies CP, SOB, dizziness, N/V, RUQ pain or calf cramping. Pt continues nursing and supplementing with formula. This morning, pt is resting comfortably and without vision changes or LEWIS Review of Systems Review of Systems: As per HPI Physical Exam Constitutional: WD/WN, vitals as above Respiratory: normal respiratory effort, lungs clear to auscultation Cardiovascular: RRR, no murmur, no edema Gastrointestinal (Abdomen): normal bowel sounds, soft, nontender, no hepatosplenomegaly Neurologic: PERRL, EOMI, accommodation nl, no face palsy, no dysarthria Psychiatric: A+Ox3, euthymic affect Results & Data Vital Signs (Past 12 Hours) Vital Signs Temp Pulse Resp BP Pulse Ox O2 Del Method 04/11/25 04:15 145/93 H 04/10/25 23:30 36.8 C 82 16 134/89 98 Room Air 04/10/25 19:38 36.5 C 88 18 157/101 H 98 Room Air 04/10/25 18:00 82 153/96 H Resident Activity Tracking Resident Involvement: Resident Care Provided Care Provided: Adult Hospital Medicine
[2025-04-11 08:26] LABS: BUN Creatinine Ratio 20.3 (10-20); Creatinine Clr Calc Pharmacy 116.5 ml/min; Potassium 4.1 mmol/L (3.5-5.1)
[2025-04-11 12:42] VITALS: RESP 16; TEMP 98.6; O2SAT 98
[2025-04-11 15:10] VITALS: BP 126/82; PULSE 91
--- NOTE | 2025-04-11 19:55 | Hospitalist Progress Note ---
Date of Service April 11, 2025 Assessment & Plan (1) Preeclampsia: (2) hypertension: Plan Preeclampsia with hypertension Proteinuria at time of delivery, renal function has remained normal, LFTs normal. Was normotensive until time of delivery Highly likely that the HTN is related to preeclampsia and severe HTN is not uncommon. Rarely HTN can be presentation of hyperaldosteronism. She lacks hypokalemia, but this doesn't rule it out. Nevertheless, treatment would be the same initially (antihypertensives, spironolactone) -if persisting more than 6 weeks or so, checking renin:johan makes sense She has no recorded hypertension prior to 04/04 (including in 2023 up to a year ago) so other causes of secondary hypertension unlikely and should have presented sooner and not acutely - for example aortic coarctation, UMA, alfonso syndrome Additional common issues would be nsaids (none given here) and fluid overload - gave trial of lasix 10 IV with 700 mL output and reduction of edema - BP did not change much No evidence of an BRENDA, renal infarct, stroke -BMP today stable with normal Cr and electrolytes BP adequately controlled for past 24h on current regimen of nifedipine ER 60 mg daily and labetalol 300 mg tid -continue these for discharge -room to go up on both if necessary. if edema persisting can add low dose spironolactone -discussed with Dr. Dick -advised her to avoid too much NSAID, prefer tylenol. Regular salt diet since ongoing fluid shifts and -we are making primary care follow up appt for hypertension management Admission and Anticipated Discharge Date Admission Date: April 04, 2025 Subjective doing well today, no headache or vision changes/colors today leg edema improved after lasix, still some present Physical Exam 2 Physical Exam: Last 24h vitals reviewed GEN: no acute distress, sitting edge of bed HEENT: pupils equal, sclerae anicteric, moist MM RESP: normal WOB CTAB CV: reg no mrg ABD: deferred, : no ahumada SKIN: warm and dry, no generalized rashes EXT: wwp 1-2+ symmetric LE pitting edema improved NEURO: AOx person, place, and situation. Face symmetric, speech normal, moves 4 ext spontaneously and equally Results & Data Results & Data Vital Signs (Past 12 Hours) Vital Signs Temp Pulse Resp BP Pulse Ox O2 Del Method 04/11/25 16:09 37.0 C 91 H 16 126/82 98 04/11/25 14:58 91 H 126/82 04/11/25 12:09 37.0 C 77 16 143/94 H 98 Room Air Laboratory Results 04/09/25 07:29 04/11/25 06:21 PG Care Time/CCT Total # of Minutes Spent Total Time Spent with Patient: Total time spent is greater than 50% in coordination of care (as documented) at patient's floor/unit and/or counseling patient: Coding Level of Care Code 93220 SUB INP/OBS CARE 2/35MIN Diagnoses Preeclampsia O14.90 hypertension O16.5
== END 2025-04-11 16:50 | disposition home or self-care (01) | DRG 807 ==
LOC: OPB 06:27 → 4S1 06:28 → 4E2 04-06 00:12 → 4S1 04-08 01:50 → 4E2 04-08 06:13 → 4S1 04-08 21:39 → 4E2 04-09 00:57 → 4S1 04-09 08:34 → 4E2 04-09 11:07